=== PATIENT | female | born 1940 | race Caucasian/White ===

== ENCOUNTER 2017-06-17 16:10 | Inpatient (IN) | payer MEDICARE, OTHER ==
[2017-06-17 17:03] LABS: ADD MAN DIFF? NO
[2017-06-17 17:07] LABS: BASO # 0.1 x10^3/uL (0.0-0.2); BASO % 1 % (0-3); EOS % 0 % (0-3); HEMOGLOBIN 13.8 g/dL (12.0-15.5); LYMPH # 0.8 x10^3/uL (1.0-4.8); LYMPH % 6 % (24-48); MEAN CORPUSCULAR HEMOGLOBIN 30 pg (25-35); MEAN CORPUSCULAR HGB CONC 33 g/dL (31-37); MEAN CORPUSCULAR VOLUME 91 fL (79-100); MONO # 1.1 x10^3/uL (0.0-1.1); MONO % 9 % (0-9); NEUT # 10.7 x10^3uL (1.8-7.7); NEUT % 84 % (31-73); PLATELET COUNT 132 x10^3/uL (140-400); RED CELL DISTRIBUTION WIDTH 16.9 % (11.5-14.5); WHITE BLOOD COUNT 12.7 x10^3/uL (4.0-11.0)
[2017-06-17 17:15] LABS: ANION GAP 5 (6-14); BLOOD UREA NITROGEN 21 mg/dL (7-20); BUN/CREATININE RATIO 21 (6-20); CALCIUM 9.7 mg/dL (8.5-10.1); CARBON DIOXIDE 26 mmol/L (21-32); CHLORIDE 102 mmol/L (98-107); GFR 54.2; GLUCOSE 123 mg/dL (70-99); POTASSIUM 4.1 mmol/L (3.5-5.1); SODIUM 133 mmol/L (136-145)
[2017-06-17 17:23] LABS: LACTIC ACID 1.6 mmol/L (0.4-2.0)
[2017-06-17 17:24] LABS: TROPONINI < 0.017 ng/mL (0.000-0.055)
[2017-06-17 17:30] LABS: CKMB MASS 0.8 ng/mL (0.0-3.6); CREATINE KINASE 74 U/L (26-192)
[2017-06-17 17:32] LABS: ALBUMIN 3.8 g/dL (3.4-5.0); ALBUMIN/GLOBULIN RATIO 0.9 (1.0-1.7); ALK PHOS 180 U/L (46-116); ALT (SGPT) 40 U/L (14-59); AMYLASE 55 U/L (25-115); AST (SGOT) 56 U/L (15-37); BILIRUBIN,URINE NEGATIVE (NEG); CLARITY,URINE CLEAR; COLOR,URINE AMBER; GLUCOSE,URINE NEGATIVE (NEG); LIPASE 243 U/L (73-393); NITRITE,URINE NEGATIVE (NEG); PROTEIN,URINE 100 mg/dL (NEG-TRACE); TOTAL BILIRUBIN 1.5 mg/dL (0.2-1.0); TOTAL PROTEIN 8.2 g/dL (6.4-8.2)
[2017-06-17 17:33] LABS: INR 2.3 (0.8-1.1); PARTIAL THROMBOPLASTIN TIME 47 SEC (24-38); PROTHROMBIN TIME PATIENT 24.7 SEC (11.7-14.0)
[2017-06-17 17:38] LABS: DIG 1.6 ng/mL (0.9-2.0)
[2017-06-17 17:39] LABS: NT-PRO BNP 2233 pg/mL (0-124)
[2017-06-17 17:42] LABS: BACTERIA,URINE FEW /HPF (0-FEW); SQUAMOUS EPITHELIAL CELL,UR MANY /LPF
[2017-06-17] MEDS: ONDANSETRON PF 4 MG/2 ML VIAL. IV (17:43)
[2017-06-17] MEDS: ACETAMINOPHEN 325 MG TABLET. PO (17:43)
[2017-06-17] MEDS: IV NORMAL SALINE 1000ML BAG 1,000 ML IV ×2 (17:44→21:51)
[2017-06-17 17:47] LABS: INFLUENZA A PATIENT NEGATIVE (NEGATIVE); INFLUENZA B PATIENT NEGATIVE (NEGATIVE); OBC FLU VALID
[2017-06-17] MEDS: WARFARIN 6 MG TABLET. PO (19:57)
[2017-06-17] MEDS: SOTALOL 80 MG TABLET. PO ×2 (19:59→21:51)
[2017-06-17 20:40] LABS: LACTIC ACID 1.8 mmol/L (0.4-2.0)
[2017-06-17 21:23] LABS: FECAL OB PT POSITIVE (NEG); NEG OBC FOB NEG; POS OBC FOB POS
[2017-06-17] MEDS ORDERED: ONDANSETRON PF 4 MG/2 ML VIAL. IV (21:45)
[2017-06-17] MEDS: ZOLPIDEM 5 MG TABLET. PO (21:50)
[2017-06-18] MEDS: ACETAMINOPHEN 325 MG TABLET. PO ×2 (00:17→21:12)
[2017-06-18 09:41] LABS: ALBUMIN 2.8 g/dL (3.4-5.0); ALBUMIN/GLOBULIN RATIO 0.8 (1.0-1.7); ALK PHOS 124 U/L (46-116); ALT (SGPT) 31 U/L (14-59); ANION GAP 12 (6-14); AST (SGOT) 38 U/L (15-37); BLOOD UREA NITROGEN 25 mg/dL (7-20); BUN/CREATININE RATIO 28 (6-20); CALCIUM 7.8 mg/dL (8.5-10.1); CARBON DIOXIDE 22 mmol/L (21-32); CHLORIDE 103 mmol/L (98-107); CREATININE 0.9 mg/dL (0.6-1.0); GFR 61.2; GLUCOSE 112 mg/dL (70-99); POTASSIUM 3.5 mmol/L (3.5-5.1); SODIUM 137 mmol/L (136-145); TOTAL BILIRUBIN 1.3 mg/dL (0.2-1.0); TOTAL PROTEIN 6.5 g/dL (6.4-8.2)
[2017-06-18] MEDS: LEVOTHYROXINE 112 MCG TABLET PO (10:00)
[2017-06-18] MEDS: VANCOMYCIN 1.75 GM in IV 1/2 NORMAL SALINE 500 ML IV (10:10)
[2017-06-18] MEDS: SOTALOL 80 MG TABLET. PO ×2 (10:14→21:13)
[2017-06-18] MEDS: DIGOXIN 250 MCG TABLET. PO (10:16)
[2017-06-18] MEDS: LEVOTHYROXINE 137 MCG TABLET PO (10:41)
[2017-06-18] MEDS: VANCOMYCIN PER PHARMACY MC (12:59)
[2017-06-18] MEDS: cefTRIAXone IV Push 2 GM VIAL. IVP ×2 (13:03→21:13)
[2017-06-18] MEDS: WARFARIN 6 MG TABLET. PO (17:02)
[2017-06-18] MEDS ORDERED: cefTRIAXone IV Push 2 GM VIAL. IVP (20:00)
[2017-06-18] MEDS ORDERED: cefTRIAXone IV Push 1 GM VIAL. IVP (20:00)
[2017-06-18] MEDS: LACTOBACILLUS RHAMNOSUS GG 1 CAPSULE. PO (21:12)
[2017-06-18] MEDS: ZOLPIDEM 5 MG TABLET. PO (21:13)
[2017-06-19 03:38] LABS: ADD MAN DIFF? NO
[2017-06-19 04:32] LABS: BASO # 0.1 x10^3/uL (0.0-0.2); BASO % 1 % (0-3); EOS % 0 % (0-3); HEMATOCRIT 35.4 % (36.0-47.0); HEMOGLOBIN 11.6 g/dL (12.0-15.5); LYMPH # 1.2 x10^3/uL (1.0-4.8); LYMPH % 11 % (24-48); MEAN CORPUSCULAR HEMOGLOBIN 30 pg (25-35); MEAN CORPUSCULAR HGB CONC 33 g/dL (31-37); MEAN CORPUSCULAR VOLUME 92 fL (79-100); MONO # 1.1 x10^3/uL (0.0-1.1); MONO % 10 % (0-9); NEUT # 8.6 x10^3uL (1.8-7.7); NEUT % 78 % (31-73); PLATELET COUNT 72 x10^3/uL (140-400); RED BLOOD COUNT 3.85 x10^6/uL (3.50-5.40); RED CELL DISTRIBUTION WIDTH 16.9 % (11.5-14.5)
[2017-06-19 05:48] LABS: ALBUMIN 2.7 g/dL (3.4-5.0); ALBUMIN/GLOBULIN RATIO 0.8 (1.0-1.7); ALK PHOS 103 U/L (46-116); ALT (SGPT) 27 U/L (14-59); ANION GAP 7 (6-14); AST (SGOT) 33 U/L (15-37); BLOOD UREA NITROGEN 24 mg/dL (7-20); BUN/CREATININE RATIO 27 (6-20); CALCIUM 8.1 mg/dL (8.5-10.1); CARBON DIOXIDE 26 mmol/L (21-32); CHLORIDE 105 mmol/L (98-107); CREATININE 0.9 mg/dL (0.6-1.0); GFR 61.2; GLUCOSE 104 mg/dL (70-99); POTASSIUM 3.9 mmol/L (3.5-5.1); SODIUM 138 mmol/L (136-145); TOTAL BILIRUBIN 0.6 mg/dL (0.2-1.0); TOTAL PROTEIN 6.3 g/dL (6.4-8.2)
[2017-06-19] MEDS: LEVOTHYROXINE 137 MCG TABLET PO (07:54)
[2017-06-19] MEDS ORDERED: VANCOMYCIN 1 GM in IV 1/2 NORMAL SALINE 250 ML IV (10:00)
[2017-06-19] MEDS: cefTRIAXone IV Push 2 GM VIAL. IVP (10:02)
[2017-06-19] MEDS: LACTOBACILLUS RHAMNOSUS GG 1 CAPSULE. PO ×2 (10:05→21:35)
[2017-06-19] MEDS: SOTALOL 80 MG TABLET. PO ×2 (10:05→21:35)
[2017-06-19] MEDS: DIGOXIN 250 MCG TABLET. PO (10:06)
[2017-06-19] MEDS ORDERED: VANCOMYCIN 1 GM in IV DEXTROSE 5% 250 ML IV (10:45)
[2017-06-19] MEDS: GENTAMICIN SULFATE IV ×2 (10:57→22:57)
[2017-06-19] MEDS: NORMAL SALINE IV ×3 (10:57→22:57)
[2017-06-19 15:29] LABS: SPECIMEN SOURCE Urine (.); STREP PNEUMO ANTIGEN Negative (Negative)
[2017-06-19] MEDS: DAPTOMYCIN IV (17:12)
[2017-06-19] MEDS: WARFARIN 6 MG TABLET. PO (17:13)
[2017-06-19 20:10] LABS: C DIFF BY PCR Negative (Negative)
[2017-06-19] MEDS: ZOLPIDEM 5 MG TABLET. PO (21:34)
[2017-06-20] MEDS: ACETAMINOPHEN 500 MG TABLET PO (03:26)
[2017-06-20] MEDS: ALPRAZolam 0.25 MG TABLET PO (03:26)
[2017-06-20 04:39] LABS: ADD MAN DIFF? NO
[2017-06-20 04:44] LABS: BASO % 0 % (0-3); EOS # 0.1 x10^3/uL (0.0-0.7); EOS % 1 % (0-3); HEMATOCRIT 35.3 % (36.0-47.0); HEMOGLOBIN 11.7 g/dL (12.0-15.5); LYMPH # 1.3 x10^3/uL (1.0-4.8); LYMPH % 14 % (24-48); MEAN CORPUSCULAR HEMOGLOBIN 30 pg (25-35); MEAN CORPUSCULAR HGB CONC 33 g/dL (31-37); MEAN CORPUSCULAR VOLUME 91 fL (79-100); MONO # 1.2 x10^3/uL (0.0-1.1); MONO % 13 % (0-9); NEUT # 6.3 x10^3uL (1.8-7.7); NEUT % 71 % (31-73); PLATELET COUNT 64 x10^3/uL (140-400); RED BLOOD COUNT 3.87 x10^6/uL (3.50-5.40); RED CELL DISTRIBUTION WIDTH 16.7 % (11.5-14.5); WHITE BLOOD COUNT 8.9 x10^3/uL (4.0-11.0)
[2017-06-20 04:53] LABS: INR 2.7 (0.8-1.1); PROTHROMBIN TIME PATIENT 27.6 SEC (11.7-14.0)
[2017-06-20 04:59] LABS: ANION GAP 10 (6-14); BLOOD UREA NITROGEN 21 mg/dL (7-20); CALCIUM 8.2 mg/dL (8.5-10.1); CARBON DIOXIDE 23 mmol/L (21-32); CHLORIDE 104 mmol/L (98-107); CREATININE 0.8 mg/dL (0.6-1.0); GFR 70.1; GLUCOSE 137 mg/dL (70-99); POTASSIUM 3.9 mmol/L (3.5-5.1); SODIUM 137 mmol/L (136-145)
[2017-06-20 05:06] LABS: CREATINE KINASE 130 U/L (26-192)
[2017-06-20] MEDS: LEVOTHYROXINE 137 MCG TABLET PO (06:33)
[2017-06-20] MEDS: DIGOXIN 250 MCG TABLET. PO (08:19)
[2017-06-20] MEDS: LACTOBACILLUS RHAMNOSUS GG 1 CAPSULE. PO ×2 (08:19→20:44)
[2017-06-20] MEDS: SOTALOL 80 MG TABLET. PO ×2 (08:20→20:45)
[2017-06-20] MEDS: GENTAMICIN SULFATE IV ×2 (11:15→23:07)
[2017-06-20] MEDS: NORMAL SALINE IV ×3 (11:15→23:07)
[2017-06-20] MEDS: WARFARIN 6 MG TABLET. PO (16:35)
[2017-06-20] MEDS: DAPTOMYCIN IV (16:36)
[2017-06-20] MEDS: ACETAMINOPHEN 325 MG TABLET. PO (20:44)
[2017-06-20] MEDS: ZOLPIDEM 5 MG TABLET. PO (20:44)
[2017-06-21] MEDS: LEVOTHYROXINE 137 MCG TABLET PO (06:00)
[2017-06-21] MEDS: DIGOXIN 250 MCG TABLET. PO (08:43)
[2017-06-21] MEDS: LACTOBACILLUS RHAMNOSUS GG 1 CAPSULE. PO ×2 (08:44→20:01)
[2017-06-21] MEDS: SOTALOL 80 MG TABLET. PO ×2 (08:44→20:00)
[2017-06-21] MEDS: GENTAMICIN SULFATE IV ×2 (11:11→22:54)
[2017-06-21] MEDS: NORMAL SALINE IV ×3 (11:11→22:54)
[2017-06-21] MEDS: DAPTOMYCIN IV (16:27)
[2017-06-21] MEDS: WARFARIN 6 MG TABLET. PO (16:28)
[2017-06-21] MEDS: ZOLPIDEM 5 MG TABLET. PO (20:06)
[2017-06-21] MEDS: ALPRAZolam 0.25 MG TABLET PO (20:06)
[2017-06-21] MEDS: ACETAMINOPHEN 325 MG TABLET. PO (20:06)
[2017-06-22] MEDS: LEVOTHYROXINE 137 MCG TABLET PO (06:01)
[2017-06-22 06:04] LABS: INR 2.4 (0.8-1.1); PROTHROMBIN TIME PATIENT 25.6 SEC (11.7-14.0)
[2017-06-22] MEDS: SOTALOL 80 MG TABLET. PO ×2 (08:31→20:46)
[2017-06-22] MEDS: LACTOBACILLUS RHAMNOSUS GG 1 CAPSULE. PO ×2 (08:32→20:46)
[2017-06-22] MEDS: DIGOXIN 250 MCG TABLET. PO (08:33)
[2017-06-22] MEDS: GENTAMICIN SULFATE IV ×2 (11:17→15:43)
[2017-06-22] MEDS: NORMAL SALINE IV ×3 (11:17→16:30)
[2017-06-22] MEDS: ALPRAZolam 0.25 MG TABLET PO ×2 (13:19→20:46)
[2017-06-22] MEDS: WARFARIN 6 MG TABLET. PO (16:30)
[2017-06-22] MEDS: DAPTOMYCIN IV (16:30)
[2017-06-22] MEDS: ACETAMINOPHEN 325 MG TABLET. PO (16:38)
[2017-06-22] MEDS: ZOLPIDEM 5 MG TABLET. PO (20:46)
[2017-06-23] MEDS: GENTAMICIN SULFATE IV ×2 (02:59→17:52)
[2017-06-23] MEDS: NORMAL SALINE IV ×3 (02:59→17:53)
[2017-06-23] MEDS: LEVOTHYROXINE 137 MCG TABLET PO (05:50)
[2017-06-23] MEDS: SOTALOL 80 MG TABLET. PO ×2 (09:29→22:08)
[2017-06-23] MEDS: LACTOBACILLUS RHAMNOSUS GG 1 CAPSULE. PO ×2 (09:29→22:07)
[2017-06-23] MEDS: DIGOXIN 250 MCG TABLET. PO (09:30)
[2017-06-23 10:31] LABS: GENT TR 0.9 mcg/mL (0.0-2.0)
[2017-06-23 12:04] LABS: ANION GAP 6 (6-14); BLOOD UREA NITROGEN 12 mg/dL (7-20); CALCIUM 8.6 mg/dL (8.5-10.1); CARBON DIOXIDE 30 mmol/L (21-32); CHLORIDE 104 mmol/L (98-107); CREATININE 0.8 mg/dL (0.6-1.0); GFR 70.1; GLUCOSE 151 mg/dL (70-99); POTASSIUM 4.2 mmol/L (3.5-5.1); SODIUM 140 mmol/L (136-145)
[2017-06-23] MEDS: WARFARIN 6 MG TABLET. PO (17:51)
[2017-06-23] MEDS: DAPTOMYCIN IV (17:53)
[2017-06-23] MEDS: oxyCODONE/APAP 5/325 1 TAB TABLET PO (22:07)
[2017-06-23] MEDS: ZOLPIDEM 5 MG TABLET. PO (22:07)
[2017-06-24] MEDS: NORMAL SALINE IV ×2 (03:06→15:51)
[2017-06-24] MEDS: GENTAMICIN SULFATE IV (03:06)
[2017-06-24] MEDS: LEVOTHYROXINE 137 MCG TABLET PO ×2 (04:54→08:25)
[2017-06-24 05:28] LABS: INR 2.2 (0.8-1.1); PROTHROMBIN TIME PATIENT 23.9 SEC (11.7-14.0)
[2017-06-24] MEDS ORDERED: fentaNYL PF VIAL 100 MCG/2 ML VIAL IV ×2 (07:00)
[2017-06-24] MEDS ORDERED: PROCHLORPERAZINE 10 MG/2 ML VIAL. IV (07:00)
[2017-06-24] MEDS ORDERED: LIDOCAINE 1% PF 2 ML VIAL. ID (07:00)
[2017-06-24] MEDS ORDERED: MORPHINE SULFATE 4 MG/ML DISP.SYRIN. IV (07:00)
[2017-06-24] MEDS: SOTALOL 80 MG TABLET. PO ×2 (08:26→20:19)
[2017-06-24] MEDS: LACTOBACILLUS RHAMNOSUS GG 1 CAPSULE. PO ×2 (08:27→20:19)
[2017-06-24] MEDS: DIGOXIN 250 MCG TABLET. PO (08:28)
[2017-06-24] MEDS ORDERED: LIDOCAINE 2% TOPICAL JELLY 5GM TUBE. TP (09:48)
[2017-06-24] MEDS: IV RINGERS,LACTATED 1000ML 1,000 ML IV (10:25)
[2017-06-24] MEDS: BENZOCAINE ONE 20% MUCOSAL SPRAY. MM (10:36)
[2017-06-24] MEDS: LIDOCAINE 2% TOPICAL JELLY 5GM TUBE. TP (10:39)
[2017-06-24] MEDS: LIDOCAINE 2% VISCOUS 15 ML SOLUTION. MM (10:39)
[2017-06-24] MEDS ORDERED: cefTRIAXone SODIUM 2 GM in IV DEXTROSE 5% 100 ML IV (10:45)
[2017-06-24] MEDS ORDERED: LIDOCAINE 2% PF Vial for OR 5 ML VIAL. (11:02)
[2017-06-24] MEDS ORDERED: PROPOFOL 20 ML IV (11:02)
[2017-06-24] MEDS: cefTRIAXone IV Push 2 GM VIAL. IVP ×2 (13:09→20:18)
[2017-06-24] MEDS: DAPTOMYCIN IV (15:51)
[2017-06-24] MEDS: WARFARIN 6 MG TABLET. PO (15:52)
[2017-06-24] MEDS: ZOLPIDEM 5 MG TABLET. PO (20:18)
[2017-06-24] MEDS: oxyCODONE/APAP 5/325 1 TAB TABLET PO (20:19)
[2017-06-25] MEDS: LEVOTHYROXINE 137 MCG TABLET PO (04:40)
[2017-06-25] MEDS: LACTOBACILLUS RHAMNOSUS GG 1 CAPSULE. PO (09:21)
[2017-06-25] MEDS: SOTALOL 80 MG TABLET. PO (09:22)
[2017-06-25] MEDS: DIGOXIN 250 MCG TABLET. PO (09:23)
[2017-06-25] MEDS: cefTRIAXone IV Push 2 GM VIAL. IVP (09:23)
[2017-06-25] MEDS ORDERED: ACETAMINOPHEN 500 MG TABLET PO (13:45)
== END 2017-06-25 13:00 | disposition home or self-care (01) | DRG 871 ==
LOC: ER 16:10 → 5 NORTH 18:45
PROC: 02HV33Z Insertion of Infusion Device into Superior Vena Cava, Percutaneous Approach (ICD-10-PCS; principal; 2017-06-17)
DX: A41.81 Sepsis due to Enterococcus (principal); I33.0 Acute and subacute infective endocarditis; D68.62 Lupus anticoagulant syndrome; D69.6 Thrombocytopenia, unspecified; E89.0 Postprocedural hypothyroidism; Z88.0 Allergy status to penicillin; Z88.2 Allergy status to sulfonamides; I10 Essential (primary) hypertension; I25.10 Atherosclerotic heart disease of native coronary artery without angina pectoris; I48.91 Unspecified atrial fibrillation; M19.90 Unspecified osteoarthritis, unspecified site; N39.41 Urge incontinence; Z79.01 Long term (current) use of anticoagulants; Z87.891 Personal history of nicotine dependence; Z95.0 Presence of cardiac pacemaker; Z95.2 Presence of prosthetic heart valve
CPT/HCPCS: 36415; 36569; 70450; 71045; 74176; 80048; 80053; 80162; 80170; 81001; 82150; 82274; 82550; 82553; 83605; 83690; 83880; 84145; 84484; 85025; 85610; 85730; 87040; 87045; 87205; 87324; 87449; 87804; 87804-59; 93005; 93306; 93312; 93320; 93325; 96374; 99285; 99285-25; J0690; J0696; J0878; J1580; J2405; J2704; J3370; J7030; J7120; P9612

== ENCOUNTER → 2017-09-17 | Outpatient (CLI) | payer MEDICARE, OTHER ==
[2017-09-17 09:50] LABS: ADD MAN DIFF? NO
[2017-09-17 10:02] LABS: BASO % 1 % (0-3); EOS # 0.2 x10^3/uL (0.0-0.7); EOS % 6 % (0-3); HEMATOCRIT 36.4 % (36.0-47.0); HEMOGLOBIN 11.8 g/dL (12.0-15.5); LYMPH % 25 % (24-48); MEAN CORPUSCULAR HEMOGLOBIN 29 pg (25-35); MEAN CORPUSCULAR HGB CONC 33 g/dL (31-37); MEAN CORPUSCULAR VOLUME 89 fL (79-100); MONO # 0.7 x10^3/uL (0.0-1.1); MONO % 17 % (0-9); NEUT % 52 % (31-73); PLATELET COUNT 107 x10^3/uL (140-400); RED BLOOD COUNT 4.11 x10^6/uL (3.50-5.40); RED CELL DISTRIBUTION WIDTH 18.5 % (11.5-14.5)
[2017-09-17 10:48] LABS: ALBUMIN 3.5 g/dL (3.4-5.0); ALBUMIN/GLOBULIN RATIO 0.9 (1.0-1.7); ALK PHOS 144 U/L (46-116); ALT (SGPT) 27 U/L (14-59); ANION GAP 7 (6-14); AST (SGOT) 39 U/L (15-37); BLOOD UREA NITROGEN 24 mg/dL (7-20); BUN/CREATININE RATIO 30 (6-20); CALCIUM 9.2 mg/dL (8.5-10.1); CARBON DIOXIDE 26 mmol/L (21-32); CHLORIDE 106 mmol/L (98-107); CREATININE 0.8 mg/dL (0.6-1.0); GFR 69.9; GLUCOSE 142 mg/dL (70-99); POTASSIUM 4.1 mmol/L (3.5-5.1); SODIUM 139 mmol/L (136-145); TOTAL BILIRUBIN 0.7 mg/dL (0.2-1.0); TOTAL PROTEIN 7.4 g/dL (6.4-8.2)
== END | disposition home or self-care (01) ==
LOC: LAB 09:35
DX: R78.81 Bacteremia (principal); I10 Essential (primary) hypertension; F41.9 Anxiety disorder, unspecified; Z87.891 Personal history of nicotine dependence
CPT/HCPCS: 36415; 80053; 85025

== ENCOUNTER → 2017-09-25 | Outpatient (CLI) | payer MEDICARE, OTHER | END | disposition home or self-care (01) | LOC: ECHO 07:52 | DX: I08.3 Combined rheumatic disorders of mitral, aortic and tricuspid valves (principal); I27.20 Pulmonary hypertension, unspecified; I10 Essential (primary) hypertension; E89.0 Postprocedural hypothyroidism; Z95.0 Presence of cardiac pacemaker; Z87.891 Personal history of nicotine dependence; Z95.2 Presence of prosthetic heart valve | CPT/HCPCS: 93306 ==

== ENCOUNTER → 2018-07-09 | Outpatient (CLI) | payer MEDICARE, OTHER ==
[2017-07-29 07:04] VITALS: BP 162/80
[~2018-07-09] MED LIST: ACET500T68 PO; ALPR0.257 PO; BUTA1CAP61 PO; DIGO250T PO; DILT240C32 PO; DRON400T PO; HYDR-3165 PO; HYDR12.575 PO; HYDR12.58 PO; LEVO112T4 PO; LEVO137T3 PO; OXYC1TAB15 PO; SOTA150V IV; SOTA160T PO; TIZA4CAP PO; WARF-31 PO; WARF1POW MC; ZOLP10TA4 PO
--- NOTE | 2018-07-13 10:56 | RAD ---
MR#: [id number] Date of Study: 07/09/2018 Ordering Physician: LASHON SILVERIO, Referring Physician: LASHON SILVERIO, Tech: Gregorio Negro MBA, RDMS, RVT, RDCS, RTR APPROVED REPORT Patient Location: OUT-PATIENT Indications Rest Pain: VELOCITY AND DOPPLER WAVEFORM ANALYSIS RIGHT cm/secWaveformSeverity LEFT cm/secWaveform Severity dCFA 138.0BiphasicdCFA 97.0Biphasic Prof Fem Art. 68.0BiphasicProf Fem Art. 92.0Biphasic Fem Art Prox. 126.0BiphasicFem Art Prox. 124.0Biphasic Fem Art Mid. 124.0BiphasicFem Art Mid. 122.0Biphasic Fem Art Dist. 112.0BiphasicFem Art Dist. 129.0Biphasic Pop Art(Fossa) 98.0BiphasicPop Art(AK) 91.0Biphasic MACHINE OR MACHINERY MECHANIC Prox. 89.0BiphasicPTA Prox. 63.0Biphasic MACHINE OR MACHINERY MECHANIC Dist. 116.0TriphasicPTA Dist. 104.0Biphasic Per Art Mid. 42.0BiphasicPer Art Mid. 107.0Biphasic DIDIER Prox. 102.0BiphasicATA Prox. 81.0Biphasic DPA 114BiphasicDPA 115Triphasic Findings Grayscale images of the bilateral lower extremity arterial vessels reveals no significant atheroscler otic plaque. Spectral waveforms and color Doppler throughout the bilateral lower 70s are within bridgett l limits with mostly biphasic and triphasic waveforms throughout the course. No focal obstruction is identified and there is three-vessel runoff below the knees. Critical Notification Critical Value: No <Conclusion> No significant obstructive lower extremity arterial disease. Signed by : Winston Mane, Electronically Approved : 07/09/2018 12:37:15
--- NOTE | 2018-07-13 10:56 | RAD ---
MR#: [id number] Date of Study: 07/09/2018 Ordering Physician: LASHON SILVERIO, Referring Physician: LASHON SILVERIO, Tech: Gregorio Negro MBA, RDMS, RVT, RDCS, RTR APPROVED REPORT Patient Location : OUT-PATIENT Indications Lower Extremity Pain : Greater Saphenous Veins (GSV) Significant venous relux noted in the LEFT GSV at the following levels : Superficial Femoral Junction , Proximal Thigh, Mid Thigh, Distal Thigh, Proximal Calf, Mid Calf, Distal Calf Lesser Saphenous Veins (LSV) Significant venous reflux is noted in the Left LSV. Perforators Thigh Perforators Calf Perforators Left: cm up from medial heel 15cm back from the anterior border of tibia 3 diameter 1.5mm. Findings Grayscale images of the bilateral saphenofemoral junctions do not show any obvious evidence of thromb us. On the right side the great saphenous vein measures 4.4 mm and does not show any evidence of refl ux. There are multiple venous varicosities noted in the right thigh. On the left side the great saphe nous vein measures 4.3 mm and has moderate reflux at approximately 2.7 seconds throughout the venous course. The left lesser saphenous vein also demonstrates a reflux at 1.5 seconds. There are calf perf orators noted at about 15 cm up and 3 cm back measuring approximately 1.5 mm noted on the left side. Critical Notification Critical Value: No <Conclusion> 1. Positive for reflux in the left greater and lesser saphenous veins. Signed by : Winston Mane, Electronically Approved : 07/09/2018 12:43:02
--- NOTE | 2018-07-13 10:56 | CARD ---
MR#: [id number] Date of Study: 07/09/2018 Ordering Physician: LASHON SILVERIO, Referring Physician: LASHON SILVERIO, Tech: Stephanie Shelton HARRIET APPROVED REPORT EXAM: Two-dimensional echocardiogram with Doppler and color Doppler. Other Information Quality : Good INDICATION Surgery/Intervention Status/Post Aortic Valve Replacement: Mechanical Type: [employer]. Nabeel Date: 1995 Status/Post Mitral Valve Replacement: Mechanical Type: [employer] Nabeel Date: 1995 Pacemaker: Date: 1999 2D DIMENSIONS RVDd2.6 (2.9-3.5cm)Left Atrium(2D)5.4 (1.6-4.0cm) IVSd1.3 (0.7-1.1cm)Aortic Root(2D)2.2 (2.0-3.7cm) LVDd5.0 (3.9-5.9cm)LVOT Diameter2.2 (1.8-2.4cm) PWd0.9 (0.7-1.1cm)LVDs4.0 (2.5-4.0cm) FS (%) 19.8 %SV48.1 ml LVEF(%)40.5 (>50%) Aortic Valve AoV Peak Vito.279.9cm/sAoV VTI46.5cm AO Peak GR.31.3mmHgLVOT Peak Vito.167.2cm/s AO Mean GR.17mmHgAVA (VMAX)2.27cm2 LAURA (VTI)2.46go9HU P 1/2 Hsdp885wv Mitral Valve MV E Peak Gr.15mmHgMV E Mean Gr.6mmHg Tricuspid Valve TR P. Vvienfsx613qs/sRAP [id number] TR Peak Gr.64elYtHQHI12pcHy LEFT VENTRICLE The left ventricle is normal size. There is normal left ventricular wall thickness. Left ventricle sy stolic function is moderately impaired. The Ejection Fraction is 40-45%. There is global hypokinesis of the left ventricle. Tissue Doppler imaging reveals moderate left ventricular diastolic dysfunction . RIGHT VENTRICLE The right ventricle is normal size. The right ventricular systolic function is normal. There is a pac emaker lead in the right ventricle. ATRIA The left atrium is severely dilated. The right atrium size is normal. A pacemaker is seen in the righ t atrium consistent with history. The interatrial septum is intact with no evidence for an atrial sep bassam defect or patent foramen ovale as noted on 2-D or Doppler imaging. AORTIC VALVE Doppler and Color Flow revealed mild aortic regurgitation. Calculated aortic valve area is 2.4 cm2 wi th maximum pressure gradient of 31 mmHg and mean pressure gradient of 17 mmHg. There is a bi-leaflet (St[employer] Nabeel) mechanical aortic valve prosthesis. The prosthetic aortic valve appears well seated. MITRAL VALVE Calculated mitral valve area is 2.6 cm2 with maximum pressure gradient of 15 mmHg and mean pressure g radient of 6 mmHg. Doppler and Color-flow revealed mild jamee-valvular mitral regurgitation. There is a bi-leaflet ([employer] Nabeel) mechanical prosthesis of the mitral valve. Prosthetic mitral valve appears we ll seated. TRICUSPID VALVE The tricuspid valve is normal in structure and function. Doppler and Color Flow revealed mild to mode rate tricuspid regurgitation. There is moderate pulmonary hypertension. The PA pressure was estimated at 45 mmHg. There is no tricuspid valve stenosis. PULMONIC VALVE The pulmonic valve is not well visualized. Doppler and Color Flow revealed no pulmonic valvular regur gitation. There is no pulmonic valvular stenosis. GREAT VESSELS The aortic root is normal in size. The ascending aorta is moderately dilated at 3.7 cm. The IVC is di lated and collapses >50% with inspiration. PERICARDIAL EFFUSION There is no evidence of significant pericardial effusion. Critical Notification Critical Value: No <Conclusion> Left ventricle systolic function is moderately impaired. The Ejection Fraction is 40-45%. There is global hypokinesis of the left ventricle. There is a pacemaker lead in the right ventricle. There is a bi-leaflet (St[employer] Nabeel) mechanical aortic valve prosthesis. The prosthetic aortic valve appe ars well seated. Calculated aortic valve area is 2.4 cm2 with maximum pressure gradient of 31 mmHg and mean pressure g radient of 17 mmHg. There is a bi-leaflet ([employer] Nabeel) mechanical prosthesis of the mitral valve. Prosthetic mitral valve a ppears well seated. Calculated mitral valve area is 2.6 cm2 with maximum pressure gradient of 15 mmHg and mean pressure g radient of 6 mmHg. Doppler and Color-flow revealed mild jamee-valvular mitral regurgitation. Doppler and Color Flow revealed mild to moderate tricuspid regurgitation. There is moderate pulmonary hypertension. The PA pressure was estimated at 45 mmHg. Signed by : Winston Mane, Electronically Approved : 07/09/2018 12:19:28
== END | disposition home or self-care (01) ==
LOC: US 07:51
PROVIDERS: ATTEND Internal Medicine Cardiovascular Disease
DX: I08.3 Combined rheumatic disorders of mitral, aortic and tricuspid valves (principal); I27.20 Pulmonary hypertension, unspecified; I87.2 Venous insufficiency (chronic) (peripheral); Z95.2 Presence of prosthetic heart valve
CPT/HCPCS: 93306; 93925; 93970

== ENCOUNTER → 2018-09-06 | Outpatient (CLI) | payer MEDICARE, OTHER ==
[2017-07-29 07:04] VITALS: BP 162/80
[~2018-09-06] MED LIST changes: +IOHEXOL 300 MG/ML 100ML VIAL. IV ONE
--- NOTE | 2018-09-06 16:39 | RAD ---
CT HEAD WO/W CONTRAST, CT ORBITS WO/W CONTRAST Date: 09/06/2018 9:30 AM Clinical Indication: Visual disturbance Comparison: CT head 06/17/2017. Technique: Axial tomographic images were obtained of the head and orbits with and without contrast. 70 cc Omnipaque 300 contrast was administered intravenously during the exam. These were viewed on brain and bone windows. Coronal and sagittal multiplanar reconstructions were also obtained. One Or more of the following dose reduction techniques were utilized: Automated exposure control (AEC), Adjustment of mA and/or kV according to patient size, Use of iterative reconstruction technique such as ASiR, CT scan done according to ALARA and image gently/image wisely Findings: The brain parenchyma is normal in attenuation. No intra- or extra-axial mass or fluid collection. No acute hemorrhage. The ventricles are normal in size, shape, and morphology. The braun-white matter junction is normal. The subarachnoid cisterns are patent. The orbits and globes are normal. No orbital mass. No abnormal enhancement. The visualized paranasal sinuses are normal. The mastoid air cells are clear. The gardening manager topogram shows no lytic lesion or fracture. Impression: No acute intracranial process. Normal orbits. Electronically signed by: John Rose MD (09/06/2018 4:36 PM) [id number]
--- NOTE | 2018-09-06 16:39 | RAD ---
CT HEAD WO/W CONTRAST, CT ORBITS WO/W CONTRAST Date: 09/06/2018 9:30 AM Clinical Indication: Visual disturbance Comparison: CT head 06/17/2017. Technique: Axial tomographic images were obtained of the head and orbits with and without contrast. 70 cc Omnipaque 300 contrast was administered intravenously during the exam. These were viewed on brain and bone windows. Coronal and sagittal multiplanar reconstructions were also obtained. One Or more of the following dose reduction techniques were utilized: Automated exposure control (AEC), Adjustment of mA and/or kV according to patient size, Use of iterative reconstruction technique such as ASiR, CT scan done according to ALARA and image gently/image wisely Findings: The brain parenchyma is normal in attenuation. No intra- or extra-axial mass or fluid collection. No acute hemorrhage. The ventricles are normal in size, shape, and morphology. The braun-white matter junction is normal. The subarachnoid cisterns are patent. The orbits and globes are normal. No orbital mass. No abnormal enhancement. The visualized paranasal sinuses are normal. The mastoid air cells are clear. The lottery manager topogram shows no lytic lesion or fracture. Impression: No acute intracranial process. Normal orbits. Electronically signed by: John Rose MD (09/06/2018 4:36 PM) [id number]
== END | disposition home or self-care (01) ==
LOC: CT 09:00
PROVIDERS: ATTEND Ophthalmology
DX: H53.19 Other subjective visual disturbances (principal); Z95.0 Presence of cardiac pacemaker
CPT/HCPCS: 70470; 70482; Q9967

== ENCOUNTER → 2018-11-24 | Outpatient (CLI) | payer MEDICARE, OTHER ==
[2017-07-29 07:04] VITALS: BP 162/80
[~2018-11-24] MED LIST changes: -IOHEXOL 300 MG/ML 100ML VIAL. IV ONE
--- NOTE | 2018-11-24 08:05 | RAD ---
ABDOMEN COMPLETE: 11/24/2018 7:30 AM Indication: 78 years old Female. Splenomegaly. Comparison: None. TECHNIQUE: Sonographic evaluation of the abdomen is performed utilizing grayscale and color Doppler. FINDINGS: Liver: Homogenous normal echotexture.. There is hepatopedal flow within the portal venous system. Right hepatic lobe measures 15.8 cm. Left hepatic cyst measures 1.4 x 1.1 cm. Biliary system: CBD measures 7 mm. There is no intrahepatic or extrahepatic biliary dilatation. Gallbladder: Surgically absent. Sonographic Dias sign: Negative Pancreas: Visualized head and uncinate process are unremarkable. Body and tail are not visualized. Spleen: 11.7 cm. Right kidney: 10.4 x 4.0 x 5.3 cm. No hydronephrosis. Normal echotexture without focal mass or renal calculus. Left kidney: 11.3 x 4.3 x 5.6 cm. No hydronephrosis. Normal echotexture without focal mass or renal calculus. Abdominal aorta and IVC: Visualized portions unremarkable. Free fluid:None. IMPRESSION: Status post cholecystectomy without intrahepatic or extrahepatic periductal dilatation. Spleen is nonenlarged measuring 11.7 cm in craniocaudal dimension. Electronically signed by: Nanci Olson MD (11/24/2018 8:02 AM) [facility]
== END | disposition home or self-care (01) ==
LOC: US 07:14
PROVIDERS: ATTEND Internal Medicine Hematology & Oncology
DX: K76.89 Other specified diseases of liver (principal); D50.9 Iron deficiency anemia, unspecified; D64.9 Anemia, unspecified; Z90.49 Acquired absence of other specified parts of digestive tract
CPT/HCPCS: 76700

== ENCOUNTER 2018-12-02 09:52 | Outpatient (CLI) | payer MEDICARE, OTHER ==
[~2018-12-02] VITALS: Ht 165.1 cm; Wt 66.2 kg
[2018-12-02 10:30] VITALS: BP 171/86
[2018-12-02] MEDS ORDERED: MIRA50TA PO (10:45)
[2018-12-02] MEDS ORDERED: LOSA-73 PO (10:45)
[2018-12-02] MEDS ORDERED: WARF-78 PO (10:45)
[2018-12-02] MEDS ORDERED: WARF7.5T48 PO (10:45)
[2018-12-02 11:05] LABS: BASO % 0 % (0-3); EOS % 0 % (0-3); HEMATOCRIT 34.2 % (36.0-47.0); HEMOGLOBIN 11.2 g/dL (12.0-15.5); LYMPH # 0.5 x10^3/uL (1.0-4.8); LYMPH % 5 % (24-48); MEAN CORPUSCULAR HEMOGLOBIN 29 pg (25-35); MEAN CORPUSCULAR HGB CONC 33 g/dL (31-37); MEAN CORPUSCULAR VOLUME 88 fL (79-100); MONO # 0.3 x10^3/uL (0.0-1.1); MONO % 4 % (0-9); NEUT # 8.7 x10^3/uL (1.8-7.7); NEUT % 91 % (31-73); PLATELET COUNT 72 x10^3/uL (140-400); RED BLOOD COUNT 3.87 x10^6/uL (3.50-5.40); RED CELL DISTRIBUTION WIDTH 25.2 % (11.5-14.5); WHITE BLOOD COUNT 9.5 x10^3/uL (4.0-11.0)
[2018-12-02 11:25] LABS: PROTHROMBIN TIME PATIENT 52.2 SEC (11.7-14.0)
[2018-12-02 14:37] LABS: % LYMPHS 2 % (24-48); % MONOS 2 % (0-10); % SEGS 96 % (35-66)
[2018-12-02 14:40] LABS: PLT ESTIMATE DECREASED (ADEQUATE)
[2018-12-02 16:23] LABS: ANISOCYTOSIS MOD
== END 2018-12-02 12:04 | disposition home or self-care (01) ==
LOC: INTRAD 09:52
PROVIDERS: ATTEND Internal Medicine Hematology & Oncology
DX: D69.6 Thrombocytopenia, unspecified (principal); R79.1 Abnormal coagulation profile; D64.9 Anemia, unspecified; Z53.09 Procedure and treatment not carried out because of other contraindication
CPT/HCPCS: 36415; 85007; 85025; 85610

== ENCOUNTER 2019-01-06 08:23 | Outpatient (CLI) | payer MEDICARE, OTHER ==
[2019-01-06] VITALS (8 sets, daily range): BP systolic 138–170; BP diastolic 70–90
[~2019-01-06] VITALS: Ht 160 cm; Wt 65.3 kg
[~2019-01-06 08:23] MED LIST changes: +LOSA-73 PO; +MIRA50TA PO; +WARF-78 PO; +WARF7.5T48 PO
[2019-01-06] MEDS ORDERED: PRED20TA PO (08:40)
[2019-01-06 08:55] LABS: BASO # 0.1 x10^3/uL (0.0-0.2); BASO % 1 % (0-3); EOS # 0.1 x10^3/uL (0.0-0.7); EOS % 2 % (0-3); HEMATOCRIT 44.6 % (36.0-47.0); HEMOGLOBIN 14.3 g/dL (12.0-15.5); LYMPH # 1.2 x10^3/uL (1.0-4.8); LYMPH % 12 % (24-48); MEAN CORPUSCULAR HEMOGLOBIN 30 pg (25-35); MEAN CORPUSCULAR HGB CONC 32 g/dL (31-37); MEAN CORPUSCULAR VOLUME 95 fL (79-100); MONO # 0.8 x10^3/uL (0.0-1.1); MONO % 9 % (0-9); NEUT # 7.4 x10^3/uL (1.8-7.7); NEUT % 77 % (31-73); PLATELET COUNT 57 x10^3/uL (140-400); RED CELL DISTRIBUTION WIDTH 23.3 % (11.5-14.5); WHITE BLOOD COUNT 9.6 x10^3/uL (4.0-11.0)
[2019-01-06 09:00] LABS: CALCIUM 8.4 mg/dL (8.5-10.1); CREATININE 0.7 mg/dL (0.6-1.0); GFR 81.4; POTASSIUM 3.9 mmol/L (3.5-5.1)
[2019-01-06 09:03] LABS: PROTHROMBIN TIME PATIENT 16.9 SEC (11.7-14.0)
[2019-01-06] MEDS ORDERED: MIDAZOLAM HCL/PF 2 MG/2 ML VIAL. ONE (09:04)
[2019-01-06 09:05] LABS: ALBUMIN 3.4 g/dL (3.4-5.0); ALBUMIN/GLOBULIN RATIO 1.2 (1.0-1.7); TOTAL BILIRUBIN 1.9 mg/dL (0.2-1.0); TOTAL PROTEIN 6.3 g/dL (6.4-8.2)
[2019-01-06] MEDS ORDERED: fentaNYL PF VIAL 100 MCG/2 ML VIAL ONE (09:05)
[2019-01-06] MEDS ORDERED: LIDOCAINE WITH 8.4% SOD BICARB 3 ML DISP.SYRIN. ONE (09:09)
[2019-01-06] MEDS ORDERED: MIDAZOLAM HCL/PF 2 MG/2 ML VIAL. IV ONE (09:15)
[2019-01-06] MEDS ORDERED: fentaNYL PF VIAL 100 MCG/2 ML VIAL IV ONE (09:15)
[2019-01-06] MEDS ORDERED: LIDOCAINE WITH 8.4% SOD BICARB 3 ML DISP.SYRIN. IJ ONE (09:15)
--- NOTE | 2019-01-06 11:11 | NUR ---
pt discharged to home with family. Discharge instructions reviewed. Lovenox prescription called in by RN for pt to take until INR is 2.5. Pt tolerate PO. PIV dcd
[2019-01-06 12:05] LABS: ANISOCYTOSIS SLIGHT; PLT ESTIMATE DECREASED (ADEQUATE)
--- NOTE | 2019-01-07 11:18 | RAD ---
CT-guided bone marrow biopsy. 01/07/2019 9:15 AM Indication: THROMBOCYTOPENIA Discussion: The risks and benefits of the procedure, including but not limited to, bleeding and infection were discussed patient. Informed consent was obtained. The patient was brought to the CT scanner and placed in the prone position. A timeout procedure was performed. Mason Tender CT imaging of the pelvis demonstrated left ilium amenable to bone marrow biopsy. The overlying soft tissues were prepped and draped using maximum sterile barrier technique. 1% lidocaine without epinephrine was administered for local anesthesia. Under intermittent CT guidance, an OncControl needle was advanced into the bone marrow of the left iliac crest. 2 Aspirates and 1 core biopsy samples were obtained. Samples were delivered to pathology was present at the time of procedure. The needle was removed and manual pressure held to achieve hemostasis. No immediate complications were identified. The procedure was performed under conscious sedation including continuous cardiopulmonary monitoring via dedicated sedation nurse. Sedation time: 20 minutes Impression: Successful CT-guided bone marrow biopsy of the left iliac crest . PQRS Compliance Statement: One or more of the following individualized dose reduction techniques were utilized for this examination: 1. Automated exposure control 2. Adjustment of the mA and/or kV according to patient size 3. Use of iterative reconstruction technique
== END 2019-01-06 11:15 | disposition home or self-care (01) ==
LOC: INTRAD 08:23
PROVIDERS: ATTEND Internal Medicine Hematology & Oncology
DX: D69.6 Thrombocytopenia, unspecified (principal)
CPT/HCPCS: 36415; 38222; 77012; 80053; 85025; 85610; 99152; J2250; J3010; 88184; 88185; 88237

== ENCOUNTER 2019-04-18 11:52 | Emergency (ER) | payer MEDICARE, OTHER ==
[~2019-04-18] VITALS: Ht 165.1 cm; Wt 68.0 kg
[~2019-04-18 11:52] MED LIST changes: -DIGO250T PO; +DIGO250T3 PO; +PRED20TA PO
--- NOTE | 2019-04-18 12:58 | PHYS DOC ---
Past Medical History Past Medical History: A-Fib, CAD, Other Additional Past Medical Histor: LUPUS ANTICOAGULANT Past Surgical History: Cholecystectomy, Pacemaker, Other Additional Past Surgical Histo: ARTIFICIAL VALVE X2, THYROID Smoking Status: Never Smoker Alcohol Use: None Drug Use: None Adult General Chief Complaint Chief Complaint: MECHANICAL FALL HPI HPI Patient is a 78-year-old female, who takes warfarin, due to previous aortic and mitral valve replacements, who presents to the emergency department for evaluat ion. The patient states she was walking in her garage this morning, when she tripped and fell, striking her face on the floor. She sustained a small laceration overlying her right eyebrow. She denies any loss of consciousness, she admits to a very mild headache. She also complains of pain in her left knee anteriorly, as well as on her left wrist. She has not had any nausea, or vomi ting. She states she checks her INR every Thursday, her INR was 1.4 today, and her doctor will be given her instructions about how to adjust her warfarin level. She denies any numbness, or other weakness. There are no alleviating, or exacerbating factors to her symptoms otherwise. The patient denies that she felt dizzy or lightheaded. She states that she tripped which is what caused her fall. Review of Systems Review of Systems Constitutional: Denies fever or chills [] Eyes: Denies change in visual acuity, redness, or eye pain [] HENT: Denies nasal congestion or sore throat [] Respiratory: Denies cough or shortness of breath [] Cardiovascular: The patient denies any shortness of breath, chest pain, palpitations, or orthopnea [] GI: Denies abdominal pain, nausea, vomiting, bloody stools or diarrhea [] : Denies dysuria or hematuria [] Musculoskeletal: Denies back pain or joint pain, other than as mentioned in the history of present illness. [] Integument: Denies rash or skin lesions [] Neurologic: Denies focal weakness or sensory changes [] Endocrine: Denies polyuria or polydipsia [] All other systems were reviewed and found to be within normal limits, except as documented in this note. Allergies Allergies Allergies Coded Allergies Type Severity Reaction Last Updated Verified Penicillins Allergy Intermediate 12/14/18 Yes Sulfa (Sulfonamide Antibiotics) Allergy Intermediate 10/29/19 Yes Physical Exam Physical Exam PHYSICAL EXAM: CONSTITUTIONAL: Well developed, well nourished HEAD: normocephalic, atraumatic EENT: PERRL, EOMI. Conjunctivae normal color, sclerae non-icteric; moist mucous membranes. There is a laceration overlying the right eyebrow, without any definite bony tenderness to palpation. The remainder of the facial bones are atraumatic. NECK: Supple, non-tender; no meningismus.There is full, painless range of motion of the cervical spine, without any focal bony midline tenderness to palpation. LUNGS: Lungs CTA, breathing even and unlabored. Normal air movement. HEART: Regular rate and rhythm, Metallic heart valves are present. CHEST: No deformity; non-tender ABDOMEN: The abdomen is soft, and non-tender, no masses or bruits. EXTREM: Normal ROM; no deformity, no calf tenderness. Normal pulses palpable in all extremities. There is no pedal edema. There is bruising and tenderness to palpation noted on the anterior aspect of the left knee, without any crepitus or deformity, there is tenderness to palpation and bruising noted on the volar surface of the left wrist, just proximal to the thenar eminence, without any definite bony tenderness to palpation. Remainder the extremities are atraumatic. SKIN: No rash; no diaphoresis NEURO: Alert; normal speech and cognition; CN's grossly intact; strength grossly intact without focal deficit. BACK: No CVA TTP.There is no bony tenderness to palpation of the thoracic or lumbar spine. Current Patient Data Vital Signs Vital Signs Date Time Temp Pulse Resp B/P (MAP) Pulse Ox O2 Delivery O2 Flow Rate FiO2 04/18/19 12:02 98.2 80 18 160/83 (108) 98 Room Air 98.2 EKG EKG Normal sinus rhythm with first-degree AV block, ventricular paced rhythm with QRS widening without acute ischemic changes. Radiology/Procedures Radiology/Procedures PROCEDURE: CT HEAD WO CONTRAST CT HEAD WO CONTRAST Indication: Injury after a fall. Exposure: One or more of the following individualized dose reduction techniques were utilized for this examination: 1. Automated exposure control 2. Adjustment of the mA and/or kV according to patient size 3. Use of iterative reconstruction technique. Technique: Standard imaging without intravenous contrast. Comparison: 02/16/2019. FINDINGS: Intracranial arterial calcifications. No evidence of acute intracranial hemorrhage, mass effect, midline shift or abnormal extra-axial fluid collection. Cardenas-white matter distinction is maintained. Ventricles and sulci are symmetric. The visualized orbits are unremarkable. No significant scalp swelling. The visualized paranasal sinuses are clear. Mastoids and auditory canals appear grossly clear. No evidence of depressed skull fracture. IMPRESSION: No evidence of acute intracranial hemorrhage. No significant interval change since prior exam.[] PROCEDURE: KNEE LEFT 4V KNEE LEFT 4V, WRIST 3V LEFT History: Pain after a fall. 3 view portable left wrist: No evidence of acute fracture. No aggressive bone destruction. Widening of the scapholunate distance. No evidence of dislocation. No significant soft tissue abnormality. IMPRESSION: 1. No evidence of an acute fracture. 2. Mild widening of the scapholunate space, raising the question of ligament tear and scapholunate dissociation. 4 view portable left knee No evidence of acute fracture. No aggressive bone destruction. Joint spaces appear intact. Alignment is intact. No significant soft tissue abnormality. IMPRESSION: No evidence of acute fracture or dislocation. Course & Med Decision Making Course & Med Decision Making Pertinent Imaging studies reviewed. (See chart for details) []Patient remains stable. I discussed test results, the need for close follow- up, and return precautions. I discussed the need for close orthopedic follow-up. LACERATION REPAIR NOTE: The 3 cm right facial laceration, in the area of the right eyebrow, was irrigated with normal saline and closed with Dermabond. SPLINT APPLICATION NOTE: A Velcro splint was placed on the left wrist. Dragon Disclaimer Dragon Disclaimer This electronic medical record was generated, in whole or in part, using a voice recognition dictation system. Departure Departure Impression: Primary Impression: Left wrist injury Additional Impressions: Facial laceration Closed head injury Anticoagulated on warfarin Knee contusion Disposition: HOME, SELF-CARE Condition: STABLE Referrals: GLEN COOL MD (PCP) WILIAN AVILA II, MD Patient Instructions: Contusion, Head Injury, Adult, Tissue Adhesive Wound Care, Wrist Splint Additional Instructions: Follow-up with orthopedics for further evaluation of your wrist injury. Please keep the splint in place, except when bathing, until instructed by physician to remove the splint. Tylenol as needed for pain Problem Qualifiers GLEN HATCH MD Apr 18, 2019 12:58
--- NOTE | 2019-04-18 13:31 | RAD ---
CT HEAD WO CONTRAST Indication: Injury after a fall. Exposure: One or more of the following individualized dose reduction techniques were utilized for this examination: 1. Automated exposure control 2. Adjustment of the mA and/or kV according to patient size 3. Use of iterative reconstruction technique. Technique: Standard imaging without intravenous contrast. Comparison: 02/16/2019. FINDINGS: Intracranial arterial calcifications. No evidence of acute intracranial hemorrhage, mass effect, midline shift or abnormal extra-axial fluid collection. Cardenas-white matter distinction is maintained. Ventricles and sulci are symmetric. The visualized orbits are unremarkable. No significant scalp swelling. The visualized paranasal sinuses are clear. Mastoids and auditory canals appear grossly clear. No evidence of depressed skull fracture. IMPRESSION: No evidence of acute intracranial hemorrhage. No significant interval change since prior exam. Electronically signed by: Serafin Zamarripa MD (04/18/2019 1:29 PM) [id number]
--- NOTE | 2019-04-18 13:47 | RAD ---
KNEE LEFT 4V, WRIST 3V LEFT History: Pain after a fall. 3 view portable left wrist: No evidence of acute fracture. No aggressive bone destruction. Widening of the scapholunate distance. No evidence of dislocation. No significant soft tissue abnormality. IMPRESSION: 1. No evidence of an acute fracture. 2. Mild widening of the scapholunate space, raising the question of ligament tear and scapholunate dissociation. 4 view portable left knee No evidence of acute fracture. No aggressive bone destruction. Joint spaces appear intact. Alignment is intact. No significant soft tissue abnormality. IMPRESSION: No evidence of acute fracture or dislocation. Electronically signed by: Serafin Zamarripa MD (04/18/2019 1:44 PM) [id number]
[2019-04-18 14:58] VITALS: BP 163/72
== END 2019-04-18 15:05 | disposition home or self-care (01) ==
LOC: ER 11:52
DX: S01.111A Laceration without foreign body of right eyelid and periocular area, initial encounter (principal); S80.02XA Contusion of left knee, initial encounter; M25.532 Pain in left wrist; Z79.01 Long term (current) use of anticoagulants; I48.91 Unspecified atrial fibrillation; I25.10 Atherosclerotic heart disease of native coronary artery without angina pectoris; Z95.0 Presence of cardiac pacemaker; Z90.49 Acquired absence of other specified parts of digestive tract; Z88.0 Allergy status to penicillin; Z88.2 Allergy status to sulfonamides; W18.39XA Other fall on same level, initial encounter; Y93.89 Activity, other specified; Y92.89 Other specified places as the place of occurrence of the external cause; Y99.8 Other external cause status
CPT/HCPCS: 12013; 29125; 70450; 73110; 73564; 99284-25

== ENCOUNTER → 2019-08-12 | Outpatient (CLI) | payer MEDICARE, OTHER ==
[~2019-08-12] MED LIST changes: +DILT240C33 PO; -LEVO112T4 PO; +LEVO112T49 PO; -WARF-78 PO; +WARF5TAB2 PO
--- NOTE | 2019-08-13 09:14 | CARD ---
MR#: [id number] Date of Study: 08/12/2019 Ordering Physician: SHAWN GATICA, Referring Physician: SHAWN GATICA, Tech: Kristan Baires [facility] APPROVED REPORT EXAM: Two-dimensional and M-mode echocardiogram with Doppler and color Doppler. Other Information Quality : AverageHR: 71bpm Rhythm : NSR INDICATION Dyspnea Fatigue RISK FACTORS Hypertension 2D DIMENSIONS Left Atrium(2D)7.1 (1.6-4.0cm)IVSd1.1 (0.7-1.1cm) Aortic Root(2D)3.8 (2.0-3.7cm)LVDd5.5 (3.9-5.9cm) LVOT Diameter2.4 (1.8-2.4cm)PWd1.1 (0.7-1.1cm) LVDs4.3 (2.5-4.0cm)FS (%) 22.0 % SV63.9 ml Aortic Valve AoV Peak Vito.279.5cm/sAoV VTI50.8cm AO Peak GR.31.3mmHgLVOT Peak Vito.83.0cm/s AO Mean GR.15mmHgAVA (VMAX)1.35cm2 Mitral Valve MV E Sozettjv720.3cm/sMV DECEL ENDQ968nu MV A Euasuzqo79.0cm/sE/A Ratio4.8 Pulmonary Valve PV Peak Rzjjhkzr52.9cm/s Tricuspid Valve TR P. Ioqabwos816dt/sTR Peak Gr.32mmHg LEFT VENTRICLE The left ventricle is normal size. There is mild concentric left ventricular hypertrophy. The systoli c function is mild to moderately impaired. Estimated ejection fraction is 40%. There is global hypok inesis of the left ventricle. RIGHT VENTRICLE The right ventricle is normal size. There is normal right ventricular wall thickness. The right ventr icular systolic function is normal. ATRIA The left atrium is moderately dilated. The right atrium is moderately dilated. The interatrial septum is intact with no evidence for an atrial septal defect or patent foramen ovale as noted on 2-D or Do ppler imaging. AORTIC VALVE Doppler and Color Flow revealed trace to mild aortic regurgitation. There is a mechanical aortic valv e prosthesis. Max PG is calculated to be 31 mmHg. Mean PG 15 mmHg. MITRAL VALVE There is a mobile echo attached to the chordae may represent a vegitation. Doppler and Color-flow rev ealed mild to moderate mitral regurgitation. Mechanical mitral valve with max PG of 15mmHg and a mean PG 3.5 mmHg. TRICUSPID VALVE Doppler and Color Flow revealed moderate tricuspid regurgitation. Estimated PAP 43 mmHg. GREAT VESSELS The aortic root is mildly enlarged. IVC is dialted and unresponsive. PERICARDIAL EFFUSION There is no evidence of significant pericardial effusion. Critical Notification Critical Value: No <Conclusion> The left ventricle is normal size. The systolic function is mild to moderately impaired. Estimated ejection fraction is 40%. There is global hypokinesis of the left ventricle. There is mild concentric left ventricular hypertrophy. Doppler and Color Flow revealed trace to mild aortic regurgitation. There is a mechanical aortic valve prosthesis. Max PG is calculated to be 31 mmHg. Mean PG 15 mmHg. Doppler and Color-flow revealed mild to moderate mitral regurgitation. Mechanical mitral valve with max PG of 15mmHg and a mean PG 3.5 mmHg. There is a mobile echo attached to the chordae may represent a vegitation. Doppler and Color Flow revealed moderate tricuspid regurgitation. Estimated PAP 43 mmHg. The aortic root is mildly enlarged. Signed by : Shawn Gatica MD Electronically Approved : 08/13/2019 09:13:46
== END | disposition home or self-care (01) ==
LOC: ECHO 12:44
PROVIDERS: ATTEND Internal Medicine Cardiovascular Disease
DX: I08.3 Combined rheumatic disorders of mitral, aortic and tricuspid valves (principal); Z95.2 Presence of prosthetic heart valve
CPT/HCPCS: 93306

== ENCOUNTER → 2019-08-12 | Outpatient (CLI) | payer MEDICARE, OTHER ==
[~2019-08-12] MED LIST changes: -DILT240C33 PO
== END | disposition home or self-care (01) ==
LOC: LAB 14:27
PROVIDERS: ATTEND Internal Medicine Gastroenterology
DX: Z01.818 Encounter for other preprocedural examination (principal); Z11.59 Encounter for screening for other viral diseases; R19.5 Other fecal abnormalities
CPT/HCPCS: U0003-CS

== ENCOUNTER → 2019-08-17 | Day surgery (SDC) | payer MEDICARE, OTHER ==
[~2019-08-17] MED LIST changes: +CLINDAMYCIN 900MG PREMIX 50 ML IV ONE; +DEXAMETHASONE SOD PHOS 4 MG/ML VIAL ONE; +DILT240C33 PO; +IV RINGERS,LACTATED 1000ML 1,000 ML IV SCH; +LIDOCAINE 2% PF 5 ML VIAL. ONE; +ONDANSETRON PF 4 MG/2 ML VIAL. ONE; +PHENYLEPHRINE in 0.9% NACL PF 1 MG/10 ML SYRINGE. IV ONE; +PROPOFOL 10 MG/ML (20ML) VIAL. IV ONE; +ePHEDrine PF IN SALINE 50 MG/10 ML SYRINGE. IV ONE; +fentaNYL PF VIAL 100 MCG/2 ML VIAL ONE
[2019-08-17 08:39] VITALS: BP 152/72
--- NOTE | 2019-08-18 18:06 | PATHOLOGY ---
[facility] Accession Number: [id number] . 01 Material submitted: . PART A: cecum - CECAL BIOPSY PART B: hepatic flexure - HEPATIC FLEXURE MASS . 01 Clinical history: . + cologuard . 02 Diagnosis: A. Colon biopsies, cecal polyp: - Tubular adenoma. . B. Colon biopsies, hepatic flexure mass: - Tubulovillous adenoma. . ([facility]:mm; 08/18/2019) [facility] 08/18/2019 1314 Local . 02 Comment: There is no high grade dysplasia or evidence of malignancy. . ([facility]:mml; 08/18/2019) . 02 Electronically signed: . Richard Armendariz MD, Pathologist NPI- [id number] . 01 Gross description: . A. The specimen is received in formalin labeled "Tone, Alexia, cecal BX" and consists of multiple fragments of pink-boland tissue measuring 1.6 x 0.3 x 0.2 cm in aggregate which are entirely submitted in A1. . B. The specimen is received in formalin labeled "Tone, Alexia, hepatic flexure mass biopsy" and consists of multiple fragments of pink-boland tissue measuring 1.6 x 0.5 x 0.2 cm in aggregate which are entirely submitted in B1. ([facility]; 08/17/2019) JFQ/JFQ 08/17/2019 1710 Local . 02 Pathologist provided ICD-10: D12.0, D12.3 . 02 CPT . 346053, [id number] Specimen Comment: A courtesy copy of this report has been sent to [phone], [phone] Specimen Comment: [id number] Specimen Comment: Report sent to / DR COOL Performed at: 01 [facility] [address], [place], [place] [id number] MD Paolo Archer MD Phone: [phone] Performed at: 02 [facility] [address], [place] [id number] MD Richard Armendariz MD Phone: [phone]
== END ==
LOC: ENDOS 06:38
PROVIDERS: ATTEND Internal Medicine Gastroenterology
DX: R19.5 Other fecal abnormalities (principal); D12.0 Benign neoplasm of cecum; D12.4 Benign neoplasm of descending colon; K64.0 First degree hemorrhoids; E11.9 Type 2 diabetes mellitus without complications; I48.91 Unspecified atrial fibrillation; Z88.1 Allergy status to other antibiotic agents; Z88.0 Allergy status to penicillin; Z98.890 Other specified postprocedural states; Z79.84 Long term (current) use of oral hypoglycemic drugs
CPT/HCPCS: 45380; J2704; J3490; 88305; J1100; J2370; J2405; J3010

== ENCOUNTER → 2019-08-25 | Outpatient (CLI) | payer MEDICARE, OTHER ==
[2019-08-17 08:39] VITALS: BP 152/72
[~2019-08-25] MED LIST changes: -CLINDAMYCIN 900MG PREMIX 50 ML IV ONE; +CONTRAST GIVEN. MC PRN; -DEXAMETHASONE SOD PHOS 4 MG/ML VIAL ONE; +IOHEXOL 240 MG/ML 50ML VIAL. PO ONE; +IOHEXOL 300 MG/ML 100ML VIAL. IV ONE; -IV RINGERS,LACTATED 1000ML 1,000 ML IV SCH; -LIDOCAINE 2% PF 5 ML VIAL. ONE; -ONDANSETRON PF 4 MG/2 ML VIAL. ONE; -PHENYLEPHRINE in 0.9% NACL PF 1 MG/10 ML SYRINGE. IV ONE; -PROPOFOL 10 MG/ML (20ML) VIAL. IV ONE; -ePHEDrine PF IN SALINE 50 MG/10 ML SYRINGE. IV ONE; -fentaNYL PF VIAL 100 MCG/2 ML VIAL ONE
[2019-08-25 08:54] LABS: CREATININE 0.8 mg/dL (0.6-1.0); GFR 69.7
--- NOTE | 2019-08-25 11:07 | RAD ---
EXAM: CT ABDOMEN/PELVIS WITH CONTRAST. HISTORY: Colon mass. TECHNIQUE: Computed tomography of the abdomen and pelvis was performed after the intravenous administration of iodinated contrast. One or more of the following individualized dose reduction techniques were utilized for this examination: 1. Automated exposure control. 2. Adjustment of the mA and/or kV according to patient size. 3. Use of iterative reconstruction technique. COMPARISON: 06/18/2017. FINDINGS: Lung windows through the visualized portions of the bases reveal moderate cardiomegaly. There are dense mitral valve annular calcifications. Changes of coronary artery bypass grafting and pacemaker placement are partially visualized. There is bibasilar atelectasis/scarring. Bone windows reveal no suspicious lesions. A mild superior endplate compression fracture at L3 does not appear acute. A 1.6 cm hypoattenuating lesion in hepatic segment 3 is stable since the prior study and likely reflects a cyst. Scattered subcentimeter hypodensities throughout the spleen may reflect uncalcified granulomas. Others are calcified. The gallbladder is surgically absent. The pancreas and adrenal glands are unremarkable. Subcentimeter bilateral renal cysts appear benign. An endophytic polypoid mass is suspected within the right colon on axial image 43. It measures 2.8 x 2.4 cm. No transmural extension is identified. There is no small bowel obstruction. There are no pathologically enlarged lymph nodes. A septated cystic lesion within the right adnexa measures 4.4 x 3.6 cm. Another in the left adnexa measures 3.0 x 2.4 cm. These are stable to mildly increased since 2018, favoring benignity. Mild stranding throughout the retroperitoneal planes is mostly dependent and suggests edema. IMPRESSION: 1. Suspect a 2.8 cm endophytic polypoid mass along the ascending colon. Correlate for this as the site of the known mass. No locally advanced disease is identified. No lymphadenopathy or distant metastatic disease. 2. Bilateral cystic adnexal masses measure up to 4.4 cm on the right, but have been present chronically favoring benignity. These could be further evaluated with pelvic ultrasound if there is persistent concern. 3. Retroperitoneal and omental edema may reflect a systemic edematous state or possibly portal hypertension. Edema is favored over peritoneal/omental metastatic disease unless advanced stage diseases known. 4. Moderate cardiomegaly. Electronically signed by: Shorty Graves MD (08/25/2019 11:04 AM) [id number]
== END | disposition home or self-care (01) ==
LOC: CT 08:30
PROVIDERS: ATTEND Internal Medicine Gastroenterology
DX: K63.89 Other specified diseases of intestine (principal); N28.1 Cyst of kidney, acquired; K76.9 Liver disease, unspecified; I51.7 Cardiomegaly; Z95.0 Presence of cardiac pacemaker; Z90.49 Acquired absence of other specified parts of digestive tract
CPT/HCPCS: 36415; 74177; 82565; 84520; Q9966; Q9967

== ENCOUNTER 2019-08-26 22:27 | Inpatient (IN) | payer MEDICARE, OTHER ==
[~2019-08-26] VITALS: Ht 165.1 cm; Wt 68.1 kg
[~2019-08-26 22:27] MED LIST changes: -CONTRAST GIVEN. MC PRN; -DILT240C33 PO; -IOHEXOL 240 MG/ML 50ML VIAL. PO ONE; -IOHEXOL 300 MG/ML 100ML VIAL. IV ONE
--- NOTE | 2019-08-26 22:38 | PHYS DOC ---
Past Medical History Past Medical History: A-Fib, CAD, Other Additional Past Medical Histor: LUPUS ANTICOAGULANT Past Surgical History: Cholecystectomy, Pacemaker, Other Additional Past Surgical Histo: ARTIFICIAL VALVE X2, THYROID Smoking Status: Never Smoker Alcohol Use: None Drug Use: None General Adult EDM: Chief Complaint: CHEST PAIN HPI: HPI: B8-year-old female presents with a chief complaint of chest pain and generalized weakness. Patient states pain is anterior chest that radiates to the right and left and occasionally to her back. Patient states she has associated shortness of breath and increasing weakness. Patient states the chest pain comes and goes. Review of Systems: Review of Systems: Constitutional: Denies fever or chills. [] Eyes: Denies change in visual acuity. [] HENT: Denies nasal congestion or sore throat. [] Respiratory: Positive shortness of breath Cardiovascular: Positive chest pain GI: Denies abdominal pain, nausea, vomiting, bloody stools or diarrhea. [] : Denies dysuria. [] Musculoskeletal: Denies back pain or joint pain. [] Integument: Denies rash. [] Neurologic: Denies headache, focal weakness or sensory changes. [Positive generalized weakness] Endocrine: Denies polyuria or polydipsia. [] Lymphatic: Denies swollen glands. [] Psychiatric: Denies depression or anxiety. [] Heart Score: HEART Score for Chest Pain: HEART Score for Chest Pain Response (Comments) Value History Moderately Suspicious 1 ECG Nonspecific Repolarizatio 1 Risk Factors >3 Risk Factors or Hx CAD 2 Troponin < Normal Limit 0 Total 4 Risk Factors: Risk Factors: DM, Current or recent (<one month) smoker, HTN, HLP, family history of CAD, obesity. Risk Scores: Score 0 - 3: 2.5% MACE over next 6 weeks - Discharge Home Score 4 - 6: 20.3% MACE over next 6 weeks - Admit for Clinical Observation Score 7 - 10: 72.7% MACE over next 6 weeks - Early Invasive Strategies Allergies: Allergies: Allergies Coded Allergies Type Severity Reaction Last Updated Verified Penicillins Allergy Intermediate 08/17/19 Yes Sulfa (Sulfonamide Antibiotics) Allergy Intermediate 08/17/19 Yes Physical Exam: PE: Constitutional: Well developed, well nourished, no acute distress, non-toxic appearance. [] HENT: Normocephalic, atraumatic, bilateral external ears normal, oropharynx moist, no oral exudates, nose normal. [] Eyes: , EOMI, conjunctiva normal, no discharge. [] Neck: Normal range of motion, no tenderness, supple, no stridor. [] Cardiovascular: Tachycardia Lungs & Thorax: No respiratory distress Abdomen: Bowel sounds normal, soft, no tenderness, no masses, no pulsatile masses. [] Skin: Warm, dry, no erythema, no rash. [] Back: No tenderness, no CVA tenderness. [] Extremities: No tenderness, no cyanosis, no clubbing, ROM intact, no edema. [] Neurologic: Alert and oriented X 3, normal motor function, normal sensory function, no focal deficits noted. [] Psychologic: Affect normal, judgement normal, mood normal. [] EKG: EKG: [] Radiology/Procedures: Radiology/Procedures: [] Impression: CHEST AP ONLY INDICATION: Reason: chest pain / Spl. Instructions: / History: . COMPARISON STUDY: 02/16/2019. FINDINGS: Left pectoral transvenous dual-chamber pacemaker. Lungs: Normal lung volume. Prominent interstitial markings with Jimenez B lines. Pleura: No pleural effusion or pneumothorax. Heart and Mediastinum: Cardiomegaly. Tortuous atherosclerotic aorta. Median sternotomy. IMPRESSION: Interstitial edema. Course & Med Decision Making: Course & Med Decision Making Pertinent Labs and Imaging studies reviewed. (See chart for details) Patient was evaluated for chief complaint. Work-up consisted of laboratory analysis and radiologic imaging. Results reviewed and discussed with patient. Patient noted to have a troponin of 0.02. EKG tachycardic suspect A. fib. Patient's treatment initially included IV fluids and metoprolol 5 mg IV push. Patient's heart rate did not improve. Patient was then treated with Cardizem bolus with improvement of heart rate in the 90s and irregular. Cardizem drip was then ordered and is currently pending. BNP noted to be greater then 1900. Patient was treated with 40 mg of Lasix. Patient admitted to the hospitalist with cardiology consult Helen Disclaimer: Helen Disclaimer: This electronic medical record was generated, in whole or in part, using a voice recognition dictation system. Departure Departure Impression: Primary Impression: Chest pain Additional Impressions: Atrial fibrillation Elevated brain natriuretic peptide (BNP) level Disposition: ADMITTED INPATIENT Admitting Physician: Glen Hearn Condition: STABLE Referrals: GLEN HEARN MD (PCP) Justicifation of Admission Dx: Justifications for Admission: Justification of Admission Dx: Yes Comments: Jeovany fib RVR, chest pain BARBARA FULLER I DO Aug 26, 2019 22:38
[2019-08-26] MEDS ORDERED: IV NORMAL SALINE 1000ML BAG 1,000 ML IV ONE (22:45)
[2019-08-26] MEDS ORDERED: ONDANSETRON PF 4 MG/2 ML VIAL. ONE (22:53)
[2019-08-26 22:59] LABS: BASO # 0.1 x10^3/uL (0.0-0.2); BASO % 1 % (0-3); EOS # 0.4 x10^3/uL (0.0-0.7); EOS % 5 % (0-3); HEMATOCRIT 38.1 % (36.0-47.0); HEMOGLOBIN 12.4 g/dL (12.0-15.5); LYMPH # 1.4 x10^3/uL (1.0-4.8); LYMPH % 18 % (24-48); MEAN CORPUSCULAR HEMOGLOBIN 29 pg (25-35); MEAN CORPUSCULAR HGB CONC 33 g/dL (31-37); MEAN CORPUSCULAR VOLUME 89 fL (79-100); MONO # 1.3 x10^3/uL (0.0-1.1); MONO % 16 % (0-9); NEUT # 4.9 x10^3/uL (1.8-7.7); NEUT % 61 % (31-73); PLATELET COUNT 130 x10^3/uL (140-400); RED CELL DISTRIBUTION WIDTH 16.7 % (11.5-14.5); WHITE BLOOD COUNT 8.1 x10^3/uL (4.0-11.0)
[2019-08-26 23:10] LABS: CALCIUM 9.6 mg/dL (8.5-10.1); GFR 53.9; POTASSIUM 4.2 mmol/L (3.5-5.1)
[2019-08-26 23:14] LABS: DIG 0.7 ng/mL (0.9-2.0)
[2019-08-26 23:16] LABS: ALBUMIN 3.7 g/dL (3.4-5.0); ALBUMIN/GLOBULIN RATIO 1.2 (1.0-1.7); TOTAL BILIRUBIN 1.5 mg/dL (0.2-1.0); TOTAL PROTEIN 6.7 g/dL (6.4-8.2)
--- NOTE | 2019-08-26 23:20 | RAD ---
CHEST AP ONLY INDICATION: Reason: chest pain / Spl. Instructions: / History: . COMPARISON STUDY: 02/16/2019. FINDINGS: Left pectoral transvenous dual-chamber pacemaker. Lungs: Normal lung volume. Prominent interstitial markings with Jimenez B lines. Pleura: No pleural effusion or pneumothorax. Heart and Mediastinum: Cardiomegaly. Tortuous atherosclerotic aorta. Median sternotomy. IMPRESSION: Interstitial edema. Electronically signed by: John Rose MD (08/26/2019 11:17 PM) [facility] CENTERCarrie
[2019-08-27] VITALS (12 sets, daily range): BP systolic 102–164; BP diastolic 54–73
[2019-08-27] MEDS ORDERED: ONDANSETRON PF 4 MG/2 ML VIAL. IVP ONE ×2 (01:00→03:30)
[2019-08-27] MEDS ORDERED: ONDANSETRON PF 4 MG/2 ML VIAL. IV PRN (03:15)
[2019-08-27] MEDS ORDERED: METOPROLOL TARTRATE 5 MG/5 ML VIAL. IVP ONE (03:15)
[2019-08-27] MEDS ORDERED: FUROSEMIDE 40 MG/4 ML VIAL. IVP ONE (03:30)
[2019-08-27] MEDS ORDERED: dilTIAZem IV PUSH 25 MG/5 ML VIAL IVP ONE ×2 (04:30→05:45)
[2019-08-27] MEDS ORDERED: DILTIAZEM HCL 125 MG in IV NORMAL SALINE 100ML 100 ML IV ONE (05:00)
[2019-08-27] MEDS ORDERED: fentaNYL PF VIAL 100 MCG/2 ML VIAL IVP ONE (05:15)
[2019-08-27] MEDS ORDERED: oxyCODONE/APAP 5/325 1 TAB TABLET PO PRN (12:30)
[2019-08-27] MEDS ORDERED: ACETAMINOPHEN 500 MG TABLET PO PRN (12:30)
[2019-08-27] MEDS ORDERED: ALPRAZolam 0.25 MG TABLET PO PRN (13:00)
[2019-08-27] MEDS ORDERED: LOSARTAN POTASSIUM 50 MG TABLET. PO SCH (15:00)
[2019-08-27] MEDS: LOSARTAN POTASSIUM 25 MG TABLET. PO SCH (15:17)
[2019-08-27] MEDS: SOTALOL 80 MG TABLET. PO SCH ×2 (15:18→22:29)
[2019-08-27] MEDS: DIGOXIN 125 MCG TABLET. PO SCH (15:18)
[2019-08-27] MEDS: LEVOTHYROXINE 137 MCG TABLET PO SCH (15:31)
[2019-08-27] MEDS ORDERED: WARFARIN 5 MG TABLET. PO SCH (16:00)
[2019-08-27] MEDS ORDERED: DIGO250T3 PO (16:29)
[2019-08-27] MEDS ORDERED: DILT240C33 PO (16:29)
[2019-08-27] MEDS ORDERED: ZOLPIDEM 5 MG TABLET. PO SCH (21:00)
[2019-08-28] VITALS (13 sets, daily range): BP systolic 101–126; BP diastolic 54–64
[2019-08-28] MEDS: LEVOTHYROXINE 137 MCG TABLET PO SCH (06:44)
[2019-08-28] MEDS: DIGOXIN 125 MCG TABLET. PO SCH (09:21)
[2019-08-28] MEDS: SOTALOL 80 MG TABLET. PO SCH (09:21)
[2019-08-28] MEDS: LOSARTAN POTASSIUM 25 MG TABLET. PO SCH (09:22)
--- NOTE | 2019-08-28 09:53 | PDOC ---
Provider Note Provider Note [id number] Justicifation of Admission Dx: Justifications for Admission: Justification of Admission Dx: Yes GLEN COOL MD Aug 28, 2019 09:53
--- NOTE | 2019-08-28 10:01 | SSS ---
ADMIT DATE: 08/28/2019 CHIEF COMPLAINT: Nausea and weakness. HISTORY OF PRESENT ILLNESS: A 78-year-old white female with multiple chronic problems including atrial fibrillation, came in with generalized weakness and some right-sided sharp chest pain and nausea. Laboratory studies unremarkable. Platelet count normal at 130,000 for her and chest x-ray was clear. She remained in normal rhythm with her atrial fibrillation, was given a diltiazem drip because of mild blood pressure, but is doing well and comfortable to be followed as an outpatient at this point. FINAL DIAGNOSES: 1. Generalized weakness, multifactorial. 2. Chronic atrial fibrillation, rate controlled and anticoagulated. 3. Chronic idiopathic thrombocytopenic purpura. Platelets adequate. OPERATIONS, PROCEDURES, COMPLICATIONS: None. CONSULTATIONS: Dr. Mane's group. DISPOSITION: Home meds all remain the same. Activity as tolerated. Low salt intake. Regular INR test for her warfarin and follow up as needed. GLEN COOL MD DR: JUANITA/jennifer JOB#: [id number] / [id number]
--- NOTE | 2019-08-28 12:45 | NUR ---
Discharge Note: EDIE SOMMER [address] Discharge instructions and discharge home medications reviewed with Patient and a copy given. All questions have been answered and understanding verbalized. The following instructions and handouts were given: chest pain Discontinued lines and drains: Peripheral IV intact. Patient discharged to Home or Self Care with Spouse via Wheelchair
--- NOTE | 2019-08-29 06:38 | EKG ---
[facility] [address] [place] [address] Test Date: 2019-08-26 Test Time: 22:34:54 Pat Name: EDIE SOMMER Department: Room: Gender: F Community Educator: : 1940 Requested By: BARBARA FULLER Order Number: [id number] Reading MD: Measurements Intervals [place] Rate: 116 P: OR: QRS: 0 QRSD: 186 T: 156 QT: 356 QTc: 501 Interpretive Statements VENTRICULAR TACHYCARDIA ABNORMAL ECG RI6.02 No previous ECG available for comparison
== END 2019-08-28 12:45 | disposition home or self-care (01) | DRG 206 ==
LOC: ER 22:27 → ED HOLD 08-27 03:06 → 2 SOUTH 08-27 03:33 → OBSVTOIN 08-27 21:07
PROVIDERS: ADMIT Family Medicine; ATTEND Family Medicine
DX: M94.0 Chondrocostal junction syndrome [Tietze] (principal); D69.3 Immune thrombocytopenic purpura; I48.91 Unspecified atrial fibrillation; R53.1 Weakness; Z79.01 Long term (current) use of anticoagulants; Z90.49 Acquired absence of other specified parts of digestive tract; Z79.899 Other long term (current) drug therapy; I25.10 Atherosclerotic heart disease of native coronary artery without angina pectoris; Z88.0 Allergy status to penicillin; Z88.2 Allergy status to sulfonamides
CPT/HCPCS: 36415; 71045; 74177; 80053; 80162; 82565; 83735; 83880; 84484; 84520; 85025; 85610; 85730; 93005; 96361; 96374; G0378; G0379; J1940; J2405; J3010; J3490; J7030; Q9966; Q9967; 99285-25

== ENCOUNTER 2020-07-19 15:19 | Inpatient (IN) | payer MEDICARE, OTHER ==
[~2020-07-19] VITALS: Ht 165.1 cm; Wt 81.2 kg
[~2020-07-19 15:19] MED LIST changes: +DILT240C33 PO; -DRON400T PO; +DRON400T6 PO; +MIRA25TA PO; -MIRA50TA PO
[2020-07-19 15:59] VITALS: BP 175/101
[2020-07-19] MEDS ORDERED: oxyCODONE/APAP 5/325 1 TAB TABLET PO PRN (16:15)
--- NOTE | 2020-07-19 16:43 | NUR ---
Patient arrived to the unit around 1540. Upon admission it was noted the patient had a pacemaker placed in May and also appears she has HTN upon admission. Dr Hearn stated to admit to Med/Surg. Orders placed. Abran at bedside. IV started in left hand by SRINIVAS Rinaldi. Consult called to Aydin. Patient oriented to the hospital, unit, and her room. Will continue to monitor.
[2020-07-19 16:49] LABS: BASO % 1 % (0-3); EOS # 0.1 x10^3/uL (0.0-0.7); EOS % 2 % (0-3); HEMATOCRIT 41.9 % (36.0-47.0); HEMOGLOBIN 13.6 g/dL (12.0-15.5); LYMPH # 1.1 x10^3/uL (1.0-4.8); LYMPH % 25 % (24-48); MEAN CORPUSCULAR HEMOGLOBIN 30 pg (25-35); MEAN CORPUSCULAR HGB CONC 32 g/dL (31-37); MEAN CORPUSCULAR VOLUME 94 fL (79-100); MONO # 0.6 x10^3/uL (0.0-1.1); MONO % 15 % (0-9); NEUT # 2.4 x10^3/uL (1.8-7.7); NEUT % 56 % (31-73); PLATELET COUNT 90 x10^3/uL (140-400); RED BLOOD COUNT 4.48 x10^6/uL (3.50-5.40); RED CELL DISTRIBUTION WIDTH 18.1 % (11.5-14.5); WHITE BLOOD COUNT 4.2 x10^3/uL (4.0-11.0)
[2020-07-19 16:58] LABS: ALBUMIN 3.7 g/dL (3.4-5.0); ALBUMIN/GLOBULIN RATIO 1.4 (1.0-1.7); CREATININE 0.8 mg/dL (0.6-1.0); GFR 69.6; TOTAL BILIRUBIN 2.2 mg/dL (0.2-1.0); TOTAL PROTEIN 6.4 g/dL (6.4-8.2)
[2020-07-19] MEDS: IV DEXTROSE 5 %-0.45 % NACL 1,000 ML IV SCH (16:59)
[2020-07-19] MEDS: LOSARTAN POTASSIUM 25 MG TABLET. PO SCH (17:00)
[2020-07-19 17:20] LABS: PROTHROMBIN TIME PATIENT 45.2 SEC (11.7-14.0)
--- NOTE | 2020-07-19 17:37 | PDOC2 ---
CONSULT Date of Consult Date of Consult DATE: 07/19/20 TIME: 17:34 Reason for Consult Reason for Consult: Dysphagia/anorexia Past Medical History Cardiovascular: AFIB, CHF, HTN, Aortic stenosis Pulmonary: Bronchitis Heme/Onc: Other Past Surgical History Past Surgical History: Other Family History Family History: Hypertension Social History ALCOHOL: none Current Medications Current Medications Current Medications Levothyroxine Sodium (Synthroid) 137 mcg DAILY07 PO ; Start 07/20/20 at 07:00 Losartan Potassium (Cozaar) 25 mg DAILY PO Last administered on 07/19/20at 17:00; Start 07/19/20 at 17:00 Oxycodone/ Acetaminophen (Percocet 5/325) 1 tab PRN Q6HRS PRN PO PAIN; Start 07/19/20 at 16:15 Warfarin Sodium (Coumadin) 5 mg DAILY16 PO ; Start 07/20/20 at 16:00; Status UNV Alprazolam (Xanax) 0.25 mg PRN BID PRN PO ANXIETY / AGITATION; Start 07/19/20 at 16:30 Zolpidem Tartrate (Ambien) 5 mg QHS PO ; Start 07/19/20 at 21:00 Dextrose/Sodium Chloride 1,000 ml @ 60 mls/hr [id number] IV Last administered on 07/19/20at 16:59; Start 07/19/20 at 17:00 Citalopram Hydrobromide (CeleXA) 10 mg QHS PO ; Start 07/19/20 at 21:00 Warfarin Sodium (Coumadin) 5 mg DAILY16 PO ; Start 07/20/20 at 16:00 Warfarin Sodium (Coumadin Per Physician) 1 each PRN DAILY PRN MC SEE COMMENTS; Start 07/19/20 at 17:45 Active Scripts Active Reported Digoxin 250 Mcg Tablet 250 Mcg PO QODAY Diltiazem 24Hr Cd (Diltiazem HCl) 240 Mg Cap.er.24h 1 Cap PO DAILY 30 Days Losartan Potassium 50 Mg Tablet 25 Mg PO DAILY Coumadin (Warfarin Sodium) 7.5 Mg Tablet 7.5 Mg PO UD Coumadin (Warfarin Sodium) 5 Mg Tablet 5 Mg PO UD Levothyroxine Sodium 137 Mcg Tablet 1 Tab PO DAILY Acetaminophen 500 Mg Tablet 1 Tab PO Q6HRS PRN Zebutal 50-325-40 Mg Capsule (Butalb/Acetaminophen/Caffeine) 1 Each Capsule 1 Each PO PRN Q6HRS PRN Percocet 5-325 Mg Tablet (Oxycodone/Acetaminophen) 1 Each Tablet 1 Tab PO PRN Q6HRS PRN Sotalol (Sotalol Hcl) 160 Mg Tablet 160 Mg PO BID Zolpidem Tartrate 10 Mg Tablet 0.5 Tab PO QHS Alprazolam 0.25 Mg Tab.rapdis 0.25 Mg PO PRN BID PRN Allergies Allergies: Coded Allergies: Penicillins (Verified Allergy, Intermediate, 08/17/19) Has tolerated cefdinir Sulfa (Sulfonamide Antibiotics) (Verified Allergy, Intermediate, 08/17/19) Vitals VITALS Vital Signs Date Time Temp Pulse Resp B/P (MAP) Pulse Ox O2 Delivery O2 Flow Rate FiO2 07/19/20 17:00 84 175/101 07/19/20 16:38 Room Air 07/19/20 15:59 98.0 15 97 98.0 Labs Labs Laboratory Tests Test 07/19/20 16:35 White Blood Count 4.2 x10^3/uL (4.0-11.0) Red Blood Count 4.48 x10^6/uL (3.50-5.40) Hemoglobin 13.6 g/dL (12.0-15.5) Hematocrit 41.9 % (36.0-47.0) Mean Corpuscular Volume 94 fL (79-100) Mean Corpuscular Hemoglobin 30 pg (25-35) Mean Corpuscular Hemoglobin Concent 32 g/dL (31-37) Red Cell Distribution Width 18.1 % (11.5-14.5) Platelet Count 90 x10^3/uL (140-400) Neutrophils (%) (Auto) 56 % (31-73) Lymphocytes (%) (Auto) 25 % (24-48) Monocytes (%) (Auto) 15 % (0-9) Eosinophils (%) (Auto) 2 % (0-3) Basophils (%) (Auto) 1 % (0-3) Neutrophils # (Auto) 2.4 x10^3/uL (1.8-7.7) Lymphocytes # (Auto) 1.1 x10^3/uL (1.0-4.8) Monocytes # (Auto) 0.6 x10^3/uL (0.0-1.1) Eosinophils # (Auto) 0.1 x10^3/uL (0.0-0.7) Basophils # (Auto) 0.0 x10^3/uL (0.0-0.2) Prothrombin Time 45.2 SEC (11.7-14.0) Prothromb Time International Ratio 4.7 (0.8-1.1) Sodium Level 143 mmol/L (136-145) Potassium Level 4.0 mmol/L (3.5-5.1) Chloride Level 109 mmol/L (98-107) Carbon Dioxide Level 25 mmol/L (21-32) Anion Gap 9 (6-14) Blood Urea Nitrogen 20 mg/dL (7-20) Creatinine 0.8 mg/dL (0.6-1.0) Estimated GFR (Cockcroft-Gault) 69.6 BUN/Creatinine Ratio 25 (6-20) Glucose Level 94 mg/dL (70-99) Calcium Level 9.0 mg/dL (8.5-10.1) Total Bilirubin 2.2 mg/dL (0.2-1.0) Aspartate Amino Transf (AST/SGOT) 41 U/L (15-37) Alanine Aminotransferase (ALT/SGPT) 20 U/L (14-59) Alkaline Phosphatase 160 U/L (46-116) Total Protein 6.4 g/dL (6.4-8.2) Albumin 3.7 g/dL (3.4-5.0) Albumin/Globulin Ratio 1.4 (1.0-1.7) Thyroid Stimulating Hormone (TSH) 2.083 uIU/mL (0.358-3.74) Laboratory Tests Test 07/19/20 16:35 White Blood Count 4.2 x10^3/uL (4.0-11.0) Red Blood Count 4.48 x10^6/uL (3.50-5.40) Hemoglobin 13.6 g/dL (12.0-15.5) Hematocrit 41.9 % (36.0-47.0) Mean Corpuscular Volume 94 fL (79-100) Mean Corpuscular Hemoglobin 30 pg (25-35) Mean Corpuscular Hemoglobin Concent 32 g/dL (31-37) Red Cell Distribution Width 18.1 % (11.5-14.5) Platelet Count 90 x10^3/uL (140-400) Neutrophils (%) (Auto) 56 % (31-73) Lymphocytes (%) (Auto) 25 % (24-48) Monocytes (%) (Auto) 15 % (0-9) Eosinophils (%) (Auto) 2 % (0-3) Basophils (%) (Auto) 1 % (0-3) Neutrophils # (Auto) 2.4 x10^3/uL (1.8-7.7) Lymphocytes # (Auto) 1.1 x10^3/uL (1.0-4.8) Monocytes # (Auto) 0.6 x10^3/uL (0.0-1.1) Eosinophils # (Auto) 0.1 x10^3/uL (0.0-0.7) Basophils # (Auto) 0.0 x10^3/uL (0.0-0.2) Prothrombin Time 45.2 SEC (11.7-14.0) Prothromb Time International Ratio 4.7 (0.8-1.1) Sodium Level 143 mmol/L (136-145) Potassium Level 4.0 mmol/L (3.5-5.1) Chloride Level 109 mmol/L (98-107) Carbon Dioxide Level 25 mmol/L (21-32) Anion Gap 9 (6-14) Blood Urea Nitrogen 20 mg/dL (7-20) Creatinine 0.8 mg/dL (0.6-1.0) Estimated GFR (Cockcroft-Gault) 69.6 BUN/Creatinine Ratio 25 (6-20) Glucose Level 94 mg/dL (70-99) Calcium Level 9.0 mg/dL (8.5-10.1) Total Bilirubin 2.2 mg/dL (0.2-1.0) Aspartate Amino Transf (AST/SGOT) 41 U/L (15-37) Alanine Aminotransferase (ALT/SGPT) 20 U/L (14-59) Alkaline Phosphatase 160 U/L (46-116) Total Protein 6.4 g/dL (6.4-8.2) Albumin 3.7 g/dL (3.4-5.0) Albumin/Globulin Ratio 1.4 (1.0-1.7) Thyroid Stimulating Hormone (TSH) 2.083 uIU/mL (0.358-3.74) Assessment/Plan Assessment/Plan Dysphagia-with weight loss, differential includes: oropharyngeal disease, Walls's, malignancy, achalasia,Schatzki ring, peptic stricture, and/or eosinophillic esophagitis. Plan EGD in am with possible dilation and/or biopsy if above unhelpful, then speech path/neuro consult as well as imaging wiht increased LFTS- possible related to hemolysis with mechaincal valves FUll note dictated BOB BYRD MD Jul 19, 2020 17:37
[2020-07-19] MEDS ORDERED: PHYTONADIONE 10 MG/ML AMPUL. SQ ONE (18:00)
[2020-07-19 18:10] LABS: BILIRUBIN,URINE NEGATIVE (NEG); CLARITY,URINE CLEAR; COLOR,URINE YELLOW; NITRITE,URINE NEGATIVE (NEG); PH,URINE 5.5 (<5.0-8.0); PROTEIN,URINE NEGATIVE (NEG-TRACE); UROBILINOGEN,URINE 0.2 mg/dL (0.2 mg/dL)
[2020-07-19 18:19] LABS: BACTERIA,URINE 0 /HPF (0-FEW); RBC,URINE 0 /HPF (0-2); WBC,URINE OCC /HPF (0-4)
[2020-07-19 19:00] VITALS: BP 165/80
--- NOTE | 2020-07-19 21:11 | HP ---
ADMIT DATE: 07/19/2020 CHIEF COMPLAINT: Weakness and nausea. HISTORY OF PRESENT ILLNESS: This 79-year-old white female has had ongoing increasing weakness over the last few weeks. She has frequent nausea, some degree of early satiety, but denies any overt emesis, heartburn, dysphagia, melena, hematochezia, fever, weight loss or other symptoms. She recently had a pacemaker change in ____ and multiple labs, all of which she was told were normal and no specific cause for the weakness and nausea has been found. She no longer is able to ambulate because of level of weakness that she is experiencing and is admitted for further evaluation. PAST MEDICAL HISTORY: She has a mitral valve replacement in place. MEDICATIONS: She takes warfarin for this along with multiple other meds. ALLERGIES: No allergies to drugs are known at this time. No other serious known medical problems. SOCIAL HISTORY: She is , not physically active, nonsmoker, nondrinker. FAMILY HISTORY: Unremarkable. REVIEW OF SYSTEMS: Unremarkable. OBJECTIVE: ENT: All within normal limits. No pallor or jaundice. NECK: No masses, nodes, bruits or thyroid enlargement. LUNGS: Clear, without tachypnea. CARDIOVASCULAR: Regular rate. Valve clicks noted in the apex to the left axillary area. BREASTS: Not examined. ABDOMEN: Soft, benign, nontender. No masses or guarding. EXTREMITIES: Good pedal and radial pulses. No joints or skin lesions or edema. Nailbeds are not pale. NEUROLOGIC: Physiologic. She is depressed, mildly anxious. ASSESSMENT: Ongoing anxiety, depression, weakness and nausea. PLAN: GI consult to consider endoscopy. We will repeat screening labs, which have been normal recently and we will add starting dose of sertraline as well for the panic attacks and depression that she appears to be experiencing. May well need rehab for therapy as she is not able to walk safely to be at home. JUANITA/FLORINA/LAWSON DR: JUANITA/jennifer TID: [id number]
[2020-07-19] MEDS: ALPRAZolam 0.25 MG TABLET PO PRN (21:16)
[2020-07-19] MEDS: CITALOPRAM 10 MG TABLET. PO SCH (21:16)
[2020-07-19] MEDS: ZOLPIDEM 5 MG TABLET. PO SCH (21:16)
[2020-07-19] MEDS: ONDANSETRON PF 4 MG/2 ML VIAL. IVP PRN (22:09)
[2020-07-19 23:00] VITALS: BP 153/88
[2020-07-20] VITALS (10 sets, daily range): BP systolic 152–187; BP diastolic 80–107
--- NOTE | 2020-07-20 05:47 | CONS ---
DATE OF CONSULTATION: 07/19/2020 GI CONSULTATION REASON FOR CONSULTATION: Dysphagia and nausea. HISTORY OF PRESENT ILLNESS: A 79-year-old female whose past medical history is significant for organic heart disease, status post aortic and mitral valve replacements; hypertension; hypothyroidism; who was admitted with weakness, failure to thrive, and difficulty swallowing. The patient states she has been losing weight. She has troubles with liquids going down where she feels full and regurgitates back up. She has not been a drinker or smoker through the years and has not had dysphagia in the past with ongoing symptoms. Consultation is requested. PAST MEDICAL HISTORY: Organic heart disease, status post aortic and mitral valve replacements; hypertension; hypothyroidism; and cardiac arrhythmias. ALLERGIES: PENICILLIN AND SULFA. MEDICATIONS: Alprazolam, citalopram, levothyroxine, losartan, oxycodone, warfarin, and zolpidem. SOCIAL HISTORY: She is retired. She does not drink or smoke at this time. FAMILY HISTORY: Noncontributory. REVIEW OF SYSTEMS: Per records. PHYSICAL EXAMINATION: GENERAL: Reveals a thin, disheveled white female who is alert, cooperative, in mild distress. VITAL SIGNS: Temperature is 98, pulse 84, respiratory rate 15, and blood pressure is 175/101. LUNGS: Reveal decreased breath sounds anteriorly. HEART: Reveals S1, S2 with a 3/6 systolic ejection murmur heard best at the right upper sternal border consistent with aortic valve replacement. ABDOMEN: Reveals a soft abdomen with normal bowel sounds. I did not appreciate hepatosplenomegaly. EXTREMITIES: No cyanosis, clubbing or edema. LABORATORY DATA: Hemoglobin is 13.6, hematocrit 41.9, white count 4.2, and platelet count is 90,000. Sed rate is 37. Sodium 148, potassium 4.1, chloride 109, bicarbonate 25, BUN ____, creatinine 0.8, glucose is 94, calcium is 9.0, total bilirubin 2.2, AST of 41, ALT of 20, and alkaline phosphatase is 160. INR is 4.7. ASSESSMENT AND PLAN: Dysphagia, etiology to be determined; oropharyngeal disease; achalasia; malignancy; Schatzki ring; eosinophilic esophagitis; and peptic ulcer disease are certainly in the differential. Upper endoscopy with possible biopsy or dilatation, anticoagulation will be somewhat reversed with Coumadin, recheck labs in the a.m. If this is unhelpful, then neurologic and speech pathology evaluations will be recommended for further assessment of her swallowing difficulties. HARSHAD/CRISTIN/PERRY DR: Pato TID: [id number]
[2020-07-20] MEDS: LEVOTHYROXINE 137 MCG TABLET PO SCH (07:00)
[2020-07-20 07:06] LABS: PROTHROMBIN TIME PATIENT 38.1 SEC (11.7-14.0)
[2020-07-20] MEDS ORDERED: PHYTONADIONE 10 MG/ML AMPUL. SQ ONE (08:00)
[2020-07-20] MEDS ORDERED: IV RINGERS,LACTATED 1000ML 1,000 ML IV ONE (08:15)
--- NOTE | 2020-07-20 08:33 | PDOC ---
Provider Note Date of Service: DATE: 07/20/20 TIME: 08:32 Provider Note smiling, alert, labs and vs good , but bili 2.2- will check total/direct- egd today, then see- added celexa on admit- may need rehab re weakness Justifications for Admission Other Justification GLEN COOL MD Jul 20, 2020 08:33
[2020-07-20 08:50] LABS: TOTAL BILIRUBIN 2.4 mg/dL (0.2-1.0)
[2020-07-20] MEDS: LOSARTAN POTASSIUM 25 MG TABLET. PO SCH (09:00)
[2020-07-20] MEDS: ONDANSETRON PF 4 MG/2 ML VIAL. IVP PRN ×2 (09:15→17:16)
[2020-07-20] MEDS ORDERED: PROPOFOL 10 MG/ML (20ML) VIAL. IV ONE (10:08)
[2020-07-20] MEDS ORDERED: LIDOCAINE 2% PF 5 ML VIAL. ONE (10:08)
--- NOTE | 2020-07-20 10:12 | PDOC4 ---
Operative Note Operative Note EGD with bx Pre-op dx Dysphagia post-op dx hypertonic LES gastric/duodenal ulcers s/p bx Plan PPI therapy for ulcers pending biopsies Nirto 0.3 mg sl ac q hs for possible achalasia esophagram to further asess o/p esophageal manometry to assess LES and motility BOB BYRD MD Jul 20, 2020 10:12
[2020-07-20] MEDS: PANTOPRAZOLE 40 MG TABLET.DR. PO SCH (10:15)
--- NOTE | 2020-07-20 10:50 | NUR ---
SW following. Discussed with RN, pt from home with spouse, room air, NPO. Pt had an EGD today. PT ordered, RN ordering OT. SW will continue to follow.
[2020-07-20] MEDS ORDERED: NITROGLYCERIN SUBLINGUAL 0.4 MG BOTTLE OF 25. SL PRN (11:00)
[2020-07-20] MEDS ORDERED: BARIUM SULFATE 60% 355 ML SUSP PO ONE (12:45)
[2020-07-20] MEDS ORDERED: SIMETHICONE/SOD BICARB/CITRIC ACID PACKET. PO ONE (12:45)
[2020-07-20] MEDS ORDERED: BARIUM SULFATE 340 GM SUSPENSION. PO ONE (12:45)
--- NOTE | 2020-07-20 15:50 | RAD ---
EXAMINATION: DG VIDEO SWALLOW STUDY 07/20/2020 1:51 PM HISTORY: Choking sensation, achalasia, feels like things get. COMPARISON: None. TECHNIQUE: The patient was observed swallowing various consistencies of barium under intermittent flu oroscopy. FINDINGS: Suboptimal evaluation of mucosa on air contrast portion of the exam. There are no filling defects. Th ere was dysmotility with bolus breakup and retention of barium in the upper thoracic esophagus throug hout the exam. The esophagus is mildly distended, greatest proximally. The distal esophagus or is mor e narrowed including at the GE junction but this may be due to small boluses reaching the distal esop hagus rather than achalasia. No hiatal hernia. No definite reflux noted during the exam. Total fluoroscopic time:3.3 minutes. IMPRESSION: Esophageal dysmotility with retention of contrast in the mildly patulous upper thoracic e sophagus during the exam. Electronically signed by: Katiuska Zurita MD (07/20/2020 3:48 PM) [id number]
[2020-07-20] MEDS ORDERED: WARFARIN 5 MG TABLET. PO SCH (16:00)
--- NOTE | 2020-07-20 17:05 | PDOC ---
G I PROGRESS NOTE Reason for Follow-up Dysphagia Review of Relevant I have reviewed the following items nani (where applicable) has been applied. Labs Laboratory Tests Test 07/19/20 16:35 07/19/20 17:55 07/20/20 06:10 White Blood Count 4.2 x10^3/uL (4.0-11.0) Red Blood Count 4.48 x10^6/uL (3.50-5.40) Hemoglobin 13.6 g/dL (12.0-15.5) Hematocrit 41.9 % (36.0-47.0) Mean Corpuscular Volume 94 fL (79-100) Mean Corpuscular Hemoglobin 30 pg (25-35) Mean Corpuscular Hemoglobin Concent 32 g/dL (31-37) Red Cell Distribution Width 18.1 % (11.5-14.5) Platelet Count 90 x10^3/uL (140-400) Neutrophils (%) (Auto) 56 % (31-73) Lymphocytes (%) (Auto) 25 % (24-48) Monocytes (%) (Auto) 15 % (0-9) Eosinophils (%) (Auto) 2 % (0-3) Basophils (%) (Auto) 1 % (0-3) Neutrophils # (Auto) 2.4 x10^3/uL (1.8-7.7) Lymphocytes # (Auto) 1.1 x10^3/uL (1.0-4.8) Monocytes # (Auto) 0.6 x10^3/uL (0.0-1.1) Eosinophils # (Auto) 0.1 x10^3/uL (0.0-0.7) Basophils # (Auto) 0.0 x10^3/uL (0.0-0.2) Prothrombin Time 45.2 SEC (11.7-14.0) 38.1 SEC (11.7-14.0) Prothromb Time International Ratio 4.7 (0.8-1.1) 3.8 (0.8-1.1) Sodium Level 143 mmol/L (136-145) Potassium Level 4.0 mmol/L (3.5-5.1) Chloride Level 109 mmol/L (98-107) Carbon Dioxide Level 25 mmol/L (21-32) Anion Gap 9 (6-14) Blood Urea Nitrogen 20 mg/dL (7-20) Creatinine 0.8 mg/dL (0.6-1.0) Estimated GFR (Cockcroft-Gault) 69.6 BUN/Creatinine Ratio 25 (6-20) Glucose Level 94 mg/dL (70-99) Calcium Level 9.0 mg/dL (8.5-10.1) Total Bilirubin 2.2 mg/dL (0.2-1.0) 2.4 mg/dL (0.2-1.0) Aspartate Amino Transf (AST/SGOT) 41 U/L (15-37) Alanine Aminotransferase (ALT/SGPT) 20 U/L (14-59) Alkaline Phosphatase 160 U/L (46-116) Total Protein 6.4 g/dL (6.4-8.2) Albumin 3.7 g/dL (3.4-5.0) Albumin/Globulin Ratio 1.4 (1.0-1.7) Thyroid Stimulating Hormone (TSH) 2.083 uIU/mL (0.358-3.74) Urine Collection Type Unknown Urine Color Yellow Urine Clarity Clear Urine pH 5.5 (<5.0-8.0) Urine Specific [place] 1.025 (1.000-1.030) Urine Protein Negative mg/dL (NEG-TRACE) Urine Glucose (UA) Negative mg/dL (NEG) Urine Ketones (Stick) Negative mg/dL (NEG) Urine Blood Negative (NEG) Urine Nitrite Negative (NEG) Urine Bilirubin Negative (NEG) Urine Urobilinogen Dipstick 0.2 mg/dL (0.2 mg/dL) Urine Leukocyte Esterase Negative (NEG) Urine RBC 0 /HPF (0-2) Urine WBC Occ /HPF (0-4) Urine Squamous Epithelial Cells Few /LPF Urine Bacteria 0 /HPF (0-FEW) Urine Mucus Mod /LPF Magnesium Level 2.0 mg/dL (1.8-2.4) Direct Bilirubin 1.0 mg/dL (0.0-0.2) Laboratory Tests Test 07/19/20 17:55 07/20/20 06:10 Urine Collection Type Unknown Urine Color Yellow Urine Clarity Clear Urine pH 5.5 (<5.0-8.0) Urine Specific [place] 1.025 (1.000-1.030) Urine Protein Negative mg/dL (NEG-TRACE) Urine Glucose (UA) Negative mg/dL (NEG) Urine Ketones (Stick) Negative mg/dL (NEG) Urine Blood Negative (NEG) Urine Nitrite Negative (NEG) Urine Bilirubin Negative (NEG) Urine Urobilinogen Dipstick 0.2 mg/dL (0.2 mg/dL) Urine Leukocyte Esterase Negative (NEG) Urine RBC 0 /HPF (0-2) Urine WBC Occ /HPF (0-4) Urine Squamous Epithelial Cells Few /LPF Urine Bacteria 0 /HPF (0-FEW) Urine Mucus Mod /LPF Prothrombin Time 38.1 SEC (11.7-14.0) Prothromb Time International Ratio 3.8 (0.8-1.1) Magnesium Level 2.0 mg/dL (1.8-2.4) Total Bilirubin 2.4 mg/dL (0.2-1.0) Direct Bilirubin 1.0 mg/dL (0.0-0.2) Medications Current Medications Levothyroxine Sodium (Synthroid) 137 mcg DAILY07 PO ; Start 07/20/20 at 07:00 Losartan Potassium (Cozaar) 25 mg DAILY PO Last administered on 07/19/20at 17:00; Start 07/19/20 at 17:00 Oxycodone/ Acetaminophen (Percocet 5/325) 1 tab PRN Q6HRS PRN PO PAIN; Start 07/19/20 at 16:15 Warfarin Sodium (Coumadin) 5 mg DAILY16 PO ; Start 07/20/20 at 16:00; Status UNV Alprazolam (Xanax) 0.25 mg PRN BID PRN PO ANXIETY / AGITATION Last administered on 07/19/20at 21:16; Start 07/19/20 at 16:30 Zolpidem Tartrate (Ambien) 5 mg QHS PO Last administered on 07/19/20at 21:16; Start 07/19/20 at 21:00 Dextrose/Sodium Chloride 1,000 ml @ 60 mls/hr [id number] IV Last administered on 07/19/20at 16:59; Start 07/19/20 at 17:00 Citalopram Hydrobromide (CeleXA) 10 mg QHS PO Last administered on 07/19/20at 21:16; Start 07/19/20 at 21:00 Warfarin Sodium (Coumadin) 5 mg DAILY16 PO ; Start 07/20/20 at 16:00 Warfarin Sodium (Coumadin Per Physician) 1 each PRN DAILY PRN MC SEE COMMENTS L ast administered on 07/20/20at 13:11; Start 07/19/20 at 17:45 Phytonadione (Vitamin K Ampule) 10 mg 1X ONCE SQ Last administered on 07/19/20at 17:59; Start 07/19/20 at 18:00; Stop 07/19/20 at 18:01; Status DC Ondansetron HCl (Zofran) 4 mg PRN Q6HRS PRN IVP NAUSEA/VOMITING 1ST CHOICE Last administered on 07/20/20at 09:15; Start 07/19/20 at 21:30 Phytonadione (Vitamin K Ampule) 10 mg 1X ONCE SQ Last administered on 07/20/20at 08:34; Start 07/20/20 at 08:00; Stop 07/20/20 at 08:01; Status DC Ringer's Solution 1,000 ml @ 75 mls/hr 1X ONCE IV ; Start 07/20/20 at 08:15; Stop 07/20/20 at 21:34 Propofol (Diprivan) 200 mg STK-MED ONCE IV ; Start 07/20/20 at 10:08; Stop 07/20/20 at 10:08; Status DC Lidocaine HCl (Lidocaine Pf 2% Vial) 5 ml STK-MED ONCE .ROUTE ; Start 07/20/20 at 10:08; Stop 07/20/20 at 10:08; Status DC Pantoprazole Sodium (Protonix) 40 mg DAILYAC PO ; Start 07/20/20 at 10:15 Nitroglycerin (Nitrostat) 0.4 mg PRN BFRMEAL PRN SL MUSCLE SPASMS; Start 07/20/20 at 11:00 Barium Sulfate (Liquid E-Z Paque) 355 ml 1X ONCE PO Last administered on 07/20/20at 13:10; Start 07/20/20 at 12:45; Stop 07/20/20 at 12:46; Status DC Barium Sulfate (E-Z-Hd) 340 gm 1X ONCE PO Last administered on 07/20/20at 13:10; Start 07/20/20 at 12:45; Stop 07/20/20 at 12:46; Status DC Simethicone/ Sodium Bicarb/ Citric Ac (E-Z-Gas) 1 packet 1X ONCE PO Last administered on 07/20/20at 13:10; Start 07/20/20 at 12:45; Stop 07/20/20 at 12:46; Status DC Active Scripts Active Reported Digoxin 250 Mcg Tablet 250 Mcg PO QODAY Diltiazem 24Hr Cd (Diltiazem HCl) 240 Mg Cap.er.24h 1 Cap PO DAILY 30 Days Losartan Potassium 50 Mg Tablet 25 Mg PO DAILY Coumadin (Warfarin Sodium) 7.5 Mg Tablet 7.5 Mg PO UD Coumadin (Warfarin Sodium) 5 Mg Tablet 5 Mg PO UD Levothyroxine Sodium 137 Mcg Tablet 1 Tab PO DAILY Acetaminophen 500 Mg Tablet 1 Tab PO Q6HRS PRN Zebutal 50-325-40 Mg Capsule (Butalb/Acetaminophen/Caffeine) 1 Each Capsule 1 Each PO PRN Q6HRS PRN Percocet 5-325 Mg Tablet (Oxycodone/Acetaminophen) 1 Each Tablet 1 Tab PO PRN Q6HRS PRN Sotalol (Sotalol Hcl) 160 Mg Tablet 160 Mg PO BID Zolpidem Tartrate 10 Mg Tablet 0.5 Tab PO QHS Alprazolam 0.25 Mg Tab.rapdis 0.25 Mg PO PRN BID PRN Vitals/I & O Vital Sign - Last 24 Hours 07/19/20 07/19/20 07/19/20 07/20/20 19:00 20:00 23:00 03:00 Temp 97.8 98.1 98.0 97.8 98.1 98.0 Pulse 80 80 83 Resp 15 15 15 B/P (MAP) 165/80 (108) 153/88 (109) 161/85 (110) Pulse Ox 97 95 96 O2 Delivery Room Air Room Air Room Air Room Air 07/20/20 07/20/20 07/20/20 07/20/20 07:00 08:15 09:00 09:06 Temp 97.8 98.1 97.8 98.1 Pulse 80 82 Resp 17 20 B/P (MAP) 155/83 (107) Pulse Ox 97 94 O2 Delivery Room Air Room Air Room Air 07/20/20 07/20/20 07/20/20 07/20/20 10:05 10:21 10:44 10:59 Temp 97.5 98.1 97.5 98.1 Pulse 84 79 80 83 Resp 20 16 17 17 B/P (MAP) 123/66 135/62 160/82 (108) 170/90 (116) Pulse Ox 100 92 95 95 O2 Delivery Nasal Cannula Room Air Room Air Room Air O2 Flow Rate 3 07/20/20 07/20/20 07/20/20 11:14 11:29 15:00 Temp 98.2 98.2 Pulse 82 80 80 Resp 17 19 17 B/P (MAP) 187/107 (133) 186/94 (124) 179/86 (117) Pulse Ox 96 94 98 O2 Delivery Room Air Room Air Room Air Problem List Dysphagia- esophagram demonstrates 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 o/p manoimetry if symptoms persit, advance diet as tolerated Justicifation of Admission Dx: Justifications for Admission: Justification of Admission Dx: Yes BOB BYRD MD Jul 20, 2020 17:05
[2020-07-20] MEDS: IV DEXTROSE 5 %-0.45 % NACL 1,000 ML IV SCH (17:16)
[2020-07-20] MEDS: WARFARIN 5 MG TABLET. PO SCH (17:16)
[2020-07-20] MEDS: CITALOPRAM 10 MG TABLET. PO SCH (22:00)
[2020-07-20] MEDS: ZOLPIDEM 5 MG TABLET. PO SCH (22:00)
[2020-07-20] MEDS: ALPRAZolam 0.25 MG TABLET PO PRN (22:06)
[2020-07-21] MEDS: IV DEXTROSE 5 %-0.45 % NACL 1,000 ML IV SCH ×2 (02:20→08:46)
--- NOTE | 2020-07-21 02:20 | NUR ---
Iv fluids not changed at this time, as continues to have fluids infusing from previous bag.
[2020-07-21 03:26] VITALS: BP 182/89
[2020-07-21] MEDS: LEVOTHYROXINE 137 MCG TABLET PO SCH (06:30)
[2020-07-21 07:00] VITALS: BP 166/79
[2020-07-21 07:55] LABS: PROTHROMBIN TIME PATIENT 20.8 SEC (11.7-14.0)
[2020-07-21] MEDS: PANTOPRAZOLE 40 MG TABLET.DR. PO SCH (08:44)
[2020-07-21] MEDS: LOSARTAN POTASSIUM 25 MG TABLET. PO SCH (08:45)
[2020-07-21 10:07] VITALS: BP 189/98
--- NOTE | 2020-07-21 10:11 | PDOC ---
GI PROGRESS NOTES Date of Service: Date/Time DATE: 07/21/20 TIME: 10:09 Subjective Subjective Intermittent dysphagia and regurgitation. EGD shows some spasm in the distal esophagus with a spastic lower esophageal sphincter region. Barium swallow reveals retention of barium in the upper esophagus but no obvious dilated esophagus or achalasia features Objective Vitals Vital Signs Date Time Temp Pulse Resp B/P (MAP) Pulse Ox O2 Delivery O2 Flow Rate FiO2 07/21/20 08:45 80 166/79 07/21/20 07:00 98.1 80 18 166/79 (108) 96 Room Air 98.1 07/21/20 03:26 98.8 79 18 182/89 (120) 95 Room Air 98.8 07/20/20 23:00 98.4 80 18 165/86 (112) 92 Room Air 98.4 07/20/20 20:30 Room Air 07/20/20 19:00 98.0 80 18 152/88 (109) 93 Room Air 98.0 07/20/20 15:00 98.2 80 17 179/86 (117) 98 Room Air 98.2 07/20/20 11:29 80 19 186/94 (124) 94 Room Air 07/20/20 11:14 82 17 187/107 (133) 96 Room Air 07/20/20 10:59 83 17 170/90 (116) 95 Room Air 07/20/20 10:44 98.1 80 17 160/82 (108) 95 Room Air 98.1 07/20/20 10:21 79 16 135/62 92 Room Air Labs Labs Laboratory Tests Test 07/21/20 07:00 Prothrombin Time 20.8 SEC (11.7-14.0) Prothromb Time International Ratio 1.8 (0.8-1.1) Physical Exam Physical Exam Chest clear Abdomen soft Assessment Assessment Intermittent dysphagia and regurgitation. Endoscopy did not reveal stricture but did reveal spasm without evidence of neoplasia. These findings in concert with her barium swallow may suggest a primary motor disorder including presbyesophagus and or a variant of achalasia. We will try a full liquid diet and eventually a soft diet as tolerated Agree with as needed antispasmodic therapy such as nitroglycerin or hyoscyamine but long-term, esophageal manometry to evaluate lower esophageal sphincter function would be appropriate. Our office will arrange this in the outpatient setting in the next several weeks. If spastic features are noted then Botox injection may be appropriate for this patient Justicifation of Admission Dx: Justifications for Admission: Justification of Admission Dx: Yes MARY DAVIS MD Jul 21, 2020 10:11
--- NOTE | 2020-07-21 13:04 | NUR ---
Pt IV is leaking and she does not want it replaced. Pt has advanced to [facility] without issues. Call placed to Dr. Hearn at this time, order to DC IV
--- NOTE | 2020-07-21 13:56 | PN ---
DATE: 07/21/2020 LOCATION: She is in room 440. SUBJECTIVE: This 79-year-old white female remains hospitalized with ongoing weakness. She does state that she does feel hungry this morning, would like something more than clear liquids and diet has been ordered yesterday by GI to advance as tolerated, so she should get more as the day goes on. PT has not seen her yet to evaluate for the weakness. OBJECTIVE: VITAL SIGNS: Stable. She is afebrile. Blood pressures are somewhat on the high side. CHEST: Clear. HEART: Regular with mechanical valve. [place] sounds. ABDOMEN: Benign. EXTREMITIES: Without cyanosis, clubbing, or edema. LABORATORY DATA: Since admission is remarkable primarily for a coagulopathy on admission with a protime trending down and 1.8 this morning. We will see where she is at tomorrow morning. She should get 5 mg of Coumadin today. She did have some thrombocytopenia with a platelet count of 90 on admission, bilirubin yesterday of 2.4 with a direct portion of 1. EGD yesterday shows some gastric and duodenal ulcers that were biopsied and hypertonic lower esophageal sphincter. Outpatient manometry is felt necessary by GI on discharge. IMPRESSION: 1. Weakness with failure to thrive, multifactorial. 2. Gastric and duodenal ulcers and possible achalasia. 3. Status post valve replacement. 4. Permanent pacemaker placement with recent change. 5. Thrombocytopenia. 6. Mildly elevated bilirubin. 7. Weakness. PLAN: Await therapy evaluation with suggestions on discharge destination. She does live with her and they would really like to get home and then advance diet as tolerated. Otherwise, same. ISABEL AKERS: Daniele TID: [id number]
[2020-07-21 14:39] VITALS: BP 138/78
[2020-07-21] MEDS: WARFARIN 5 MG TABLET. PO SCH (17:25)
[2020-07-21 19:00] VITALS: BP 169/86
[2020-07-21] MEDS: CITALOPRAM 10 MG TABLET. PO SCH (20:44)
[2020-07-21] MEDS: ZOLPIDEM 5 MG TABLET. PO SCH (20:44)
[2020-07-21 23:04] VITALS: BP 164/83
[2020-07-22 03:16] VITALS: BP 148/80
[2020-07-22] MEDS: LEVOTHYROXINE 137 MCG TABLET PO SCH (06:22)
[2020-07-22 07:00] VITALS: BP 160/86
[2020-07-22 08:26] LABS: PROTHROMBIN TIME PATIENT 17.6 SEC (11.7-14.0)
[2020-07-22] MEDS: PANTOPRAZOLE 40 MG TABLET.DR. PO SCH (08:30)
[2020-07-22] MEDS: LOSARTAN POTASSIUM 25 MG TABLET. PO SCH (08:31)
[2020-07-22 11:00] VITALS: BP 157/89
[2020-07-22] MEDS: IV DEXTROSE 5 %-0.45 % NACL 1,000 ML IV SCH (11:37)
--- NOTE | 2020-07-22 12:38 | NUR ---
Pt wanting to go home. She is ambulating with a walker through the holly with . Gait is steady. She denies pain or discomfort. Spoke with Dr. Hearn at 1115, he is ok for her to discharge to home after lunch if she does well with the GI soft. She will need to call his office in the morning, 6/7 for scripts to be sent to pharmacy.
[2020-07-22] MEDS ORDERED: WARFARIN 3 MG TABLET. PO SCH (14:00)
--- NOTE | 2020-07-22 14:28 | NUR ---
patient is being discharged home with self care. Patient refused SNU Eval .
--- NOTE | 2020-07-22 15:32 | NUR ---
patient verbalized understanding of discharge instructions. patient discharged home.
--- NOTE | 2020-07-22 21:02 | PN ---
DATE: 07/22/2020 DAILY PROGRESS NOTE LOCATION: She is in room 440. SUBJECTIVE: This 79-year-old white female remains hospitalized with ongoing weakness, anorexia. She states she has had a better appetite, is feeling better other than some tremor, which she hopes goes away and is ready to go home. Therapy did evaluate her yesterday and suggested fpc, so we will put an evaluation for the same. She does have a who she lives with, who she states is sturdy enough to handle her. OBJECTIVE: VITAL SIGNS: Stable. She is afebrile. CHEST: Clear. HEART: Regular with mechanical valve. ABDOMEN: Benign. EXTREMITIES: Unremarkable. LABORATORY DATA: INR this morning is 1.5 and we will increase warfarin to 6 mg today. IMPRESSION: 1. Weakness with failure to thrive, multifactorial. 2. Gastric duodenal ulcers, possible achalasia on PPI therapy. 3. Status post valve replacement. 4. Permanent pacemaker placement with recent change. 5. Thrombocytopenia. 6. Mildly elevated bilirubin. PLAN: Continue to watch as far as diet. I told her that the tremor is probably from the citalopram. Again, we will increase the warfarin up to 6 mg with INR that is subtherapeutic this morning. CORNELIA DR: Daniele TID: [id number]
--- NOTE | 2020-07-23 19:08 | PATHOLOGY ---
[facility] Accession Number: [id number] . 01 Material submitted: . gastrointestinal site - GASTRIC ULCER BX . 01 Clinical history: . N/V EGD . 02 Diagnosis: Gastric biopsies, gastric ulcer: - Reactive gastropathy. See comment. (JPM:[place]anta; 07/23/2020) [facility] 07/23/2020 1634 Local . 02 Comment: Sections of the gastric ulcer biopsy reveal segments of gastric antral mucosa showing foveolar hyperplasia, congestion, edema, and slight chronic inflammation. A properly controlled immunoperoxidase stain for Helicobacter is negative for Helicobacter organisms. The findings are consistent with a reactive gastropathy. There is no evidence of malignancy. (JPM:fanta; 07/23/2020) . . Special stain performed: Immunoperoxidase stain for Helicobacter on A1 . 02 Electronically signed: . Richard Armendariz MD, Pathologist NPI- [id number] . 01 Gross description: . Received in formalin labeled "Alexia Wayne, gastric ulcer BX" are multiple boland-brown soft tissue fragments measuring in aggregate 0.8 x 0.2 x 0.1 cm. The specimen is submitted entirely in A1. ([facility]; 07/22/2020) [facility] 07/22/2020 1028 Local . 02 Pathologist provided ICD-10: K31.9 . 02 CPT . 932599, [id number] Specimen Comment: A courtesy copy of this report has been sent to [phone], [phone] Specimen Comment: [id number] Specimen Comment: Report sent to / DR COOL Performed at: [address], [place], [place] [id number] MD Christopher Castillo MD Phone: [phone] Performed at: [id number] [place], [place] [id number] MD Richard Armendariz MD Phone: [phone]
== END 2020-07-22 15:10 | disposition home or self-care (01) | DRG 384 ==
LOC: 4 NORTH 15:19
PROVIDERS: ADMIT Family Medicine; ATTEND Family Medicine
PROC: 0DB68ZX Excision of Stomach, Via Natural or Artificial Opening Endoscopic, Diagnostic (ICD-10-PCS; 2020-07-20)
PROC: 0DB98ZX Excision of Duodenum, Via Natural or Artificial Opening Endoscopic, Diagnostic (ICD-10-PCS; principal; 2020-07-20 10:00)
DX: K25.9 Gastric ulcer, unspecified as acute or chronic, without hemorrhage or perforation (principal); K22.0 Achalasia of cardia; K26.9 Duodenal ulcer, unspecified as acute or chronic, without hemorrhage or perforation; K31.89 Other diseases of stomach and duodenum; R13.10 Dysphagia, unspecified; D69.6 Thrombocytopenia, unspecified; E03.9 Hypothyroidism, unspecified; F32.9 Major depressive disorder, single episode, unspecified; F41.9 Anxiety disorder, unspecified; I11.0 Hypertensive heart disease with heart failure; I35.0 Nonrheumatic aortic (valve) stenosis; I48.91 Unspecified atrial fibrillation; I50.9 Heart failure, unspecified; R62.7 Adult failure to thrive; Z82.49 Family history of ischemic heart disease and other diseases of the circulatory system; Z95.0 Presence of cardiac pacemaker; Z95.2 Presence of prosthetic heart valve; Z88.0 Allergy status to penicillin; Z88.2 Allergy status to sulfonamides; R63.4 Abnormal weight loss; Z68.29 Body mass index [BMI] 29.0-29.9, adult; K22.8 Other specified diseases of esophagus
CPT/HCPCS: 36415; 43239; 74220; 80053; 81001; 82247; 82248; 83735; 84443; 85025; 85610; 88305; 88342; J2405; J2704; J3430; J7042; G0378

== ENCOUNTER 2020-10-11 10:55 | Emergency (ER) | payer MEDICARE, OTHER ==
[~2020-10-11] VITALS: Ht 166.4 cm; Wt 61.3 kg
[~2020-10-11 10:55] MED LIST changes: +CITA10TA4 PO; +FURO20TA3 PO; +METO50CA PO; +OMEP40CA7 PO; +OXYB5TAB10 PO; +POTA10TA PO
--- NOTE | 2020-10-11 11:55 | ED.ADGEN ---
Past Medical History Past Medical History: A-Fib, CAD, Other Additional Past Medical Histor: LUPUS ANTICOAGULANT, FAILURE TO THRIVE, RHEUMATIC FEVER Past Surgical History: Cholecystectomy, Pacemaker, Other Additional Past Surgical Histo: ARTIFICIAL VALVE X2, THYROID, COLON RESECTION FOR POLYPS Smoking Status: Never Smoker Alcohol Use: None Drug Use: None General Adult HPI: HPI: Patient is a 80-year-old female who arrives ambulatory to the emergency department complaining of left arm pain and swelling. Patient reports this has been problematic for her over the past 2 days. Patient has notable bruising of her upper arm as well. Patient states she was hospitalized previously for weakness and is unaware whether or not she may have had blood pressure checks on that right arm. Patient does states she takes anticoagulants and noted that her INR was above 6 at one time. She states that she is taking warfarin and today is her last day. The patient denies any trauma otherwise. She further denies any shortness of air or chest pain. Additionally she denies any fevers or rash. She is awake, alert and nontoxic-appearing. Review of Systems: Review of Systems: Constitutional: Denies fever or chills. [] Eyes: Denies change in visual acuity. [] HENT: Denies nasal congestion or sore throat. [] Respiratory: Denies cough or shortness of breath. [] Cardiovascular: Denies chest pain or edema. [] GI: Denies abdominal pain, nausea, vomiting, bloody stools or diarrhea. [] : Denies dysuria. [] Musculoskeletal: Reports right upper extremity pain and swelling. Denies back pain or joint pain. [] Integument: Ecchymosis of right upper extremity. Denies rash. [] Neurologic: Denies headache, focal weakness or sensory changes. [] Endocrine: Denies polyuria or polydipsia. [] Lymphatic: Denies swollen glands. [] Psychiatric: Denies depression or anxiety. [] Family History: Family History: Noncontributory Current Medications: Current Medications Medications (Trade) Dose Ordered Sig/Nisha Start Time Stop Time Status Last Admin Dose Admin Acetaminophen (Tylenol) 1,000 mg 1X ONCE 10/11/20 13:30 10/11/20 13:31 DC 10/11/20 13:38 1,000 MG Allergies: Allergies: Allergies Coded Allergies Type Severity Reaction Last Updated Verified Sulfa (Sulfonamide Antibiotics) Allergy Unknown hives 10/11/20 Yes Physical Exam: PE: Constitutional: Well developed, well nourished, no acute distress, non-toxic appearance. [] HENT: Normocephalic, atraumatic, bilateral external ears normal, oropharynx moist, no oral exudates, nose normal. [] Eyes: PERRLA, EOMI, conjunctiva normal, no discharge. [] Neck: Normal range of motion, no tenderness, supple, no stridor. [] Cardiovascular:Heart rate regular rhythm, no murmur [] Lungs & Thorax: Bilateral breath sounds clear to auscultation [] Abdomen: Bowel sounds normal, soft, no tenderness, no masses, no pulsatile masses. [] Skin: Warm, dry, no erythema, no rash. [] Back: No tenderness, no CVA tenderness. [] Extremities: Bruising of the right brachium is present with minimal soft tissue swelling. There is minimal tenderness at the site of bruising. There is no rash otherwise. [] Neurologic: Alert and oriented X 3, normal motor function, normal sensory function, no focal deficits noted. [] Psychologic: Affect normal, judgement normal, mood normal. [] Current Patient Data: Labs: Laboratory Tests Test 10/11/20 12:55 10/11/20 13:06 White Blood Count 6.0 x10^3/uL (4.0-11.0) Red Blood Count 3.02 x10^6/uL (3.50-5.40) L Hemoglobin 9.3 g/dL (12.0-15.5) L Hematocrit 27.9 % (36.0-47.0) L Mean Corpuscular Volume 92 fL (79-100) Mean Corpuscular Hemoglobin 31 pg (25-35) Mean Corpuscular Hemoglobin Concent 33 g/dL (31-37) Red Cell Distribution Width 21.0 % (11.5-14.5) H Platelet Count 114 x10^3/uL (140-400) L Neutrophils (%) (Auto) 70 % (31-73) Lymphocytes (%) (Auto) 12 % (24-48) L Monocytes (%) (Auto) 16 % (0-9) H Eosinophils (%) (Auto) 2 % (0-3) Basophils (%) (Auto) 0 % (0-3) Neutrophils # (Auto) 4.2 x10^3/uL (1.8-7.7) Lymphocytes # (Auto) 0.7 x10^3/uL (1.0-4.8) L Monocytes # (Auto) 1.0 x10^3/uL (0.0-1.1) Eosinophils # (Auto) 0.1 x10^3/uL (0.0-0.7) Basophils # (Auto) 0.0 x10^3/uL (0.0-0.2) Platelet Estimate Pending Prothrombin Time 25.3 SEC (11.7-14.0) H Prothrombin Time INR 2.3 (0.8-1.1) H Sodium Level 139 mmol/L (136-145) Potassium Level 4.6 mmol/L (3.5-5.1) Chloride Level 106 mmol/L (98-107) Carbon Dioxide Level 25 mmol/L (21-32) Anion Gap 8 (6-14) Blood Urea Nitrogen 34 mg/dL (7-20) H Creatinine 0.8 mg/dL (0.6-1.0) Estimated GFR (Cockcroft-Gault) 69.4 BUN/Creatinine Ratio 43 (6-20) H Glucose Level 128 mg/dL (70-99) H Calcium Level 9.0 mg/dL (8.5-10.1) Total Bilirubin 1.6 mg/dL (0.2-1.0) H Aspartate Amino Transferase (AST) 36 U/L (15-37) Alanine Aminotransferase (ALT) 31 U/L (14-59) Alkaline Phosphatase 268 U/L (46-116) H Troponin I Quantitative < 0.017 ng/mL (0.000-0.055) IU-Umw-L-Type Natriuretic Peptide 1527 pg/mL (0-449) H Total Protein 6.4 g/dL (6.4-8.2) Albumin 3.3 g/dL (3.4-5.0) L Albumin/Globulin Ratio 1.1 (1.0-1.7) Urine Collection Type Unknown Urine Color Angela Urine Clarity Clear Urine pH 6.0 (<5.0-8.0) Urine Specific Wagoner 1.025 (1.000-1.030) Urine Protein Negative mg/dL (NEG-TRACE) Urine Glucose (UA) Negative mg/dL (NEG) Urine Ketones (Stick) Negative mg/dL (NEG) Urine Blood Negative (NEG) Urine Nitrite Negative (NEG) Urine Bilirubin Small (NEG) Urine Urobilinogen Dipstick 2.0 mg/dL (0.2 mg/dL) Urine Leukocyte Esterase Trace (NEG) Urine RBC 1-2 /HPF (0-2) Urine WBC Occ /HPF (0-4) Urine Squamous Epithelial Cells Mod /LPF Urine Renal Epithelial Cells Few /LPF Urine Amorphous Sediment Present /HPF Urine Bacteria 0 /HPF (0-FEW) Urine Mucus Slight /LPF Laboratory Tests 10/11/20 12:55 Laboratory Tests 10/11/20 12:55 Vital Signs: Vital Signs Date Time Temp Pulse Resp B/P (MAP) Pulse Ox O2 Delivery O2 Flow Rate FiO2 10/11/20 14:18 70 130/61 (84) 96 Room Air 10/11/20 11:53 100.1 20 100.1 EKG: EKG: EKG was obtained at 1239 hrs. and revealed a normal sinus rhythm with a ventricular rate of 70 bpm. There is a prolonged MD interval with right axis deviation and a right bundle branch block. There are no acute ST/T wave changes to denote ischemia. Heart Score: C/O Chest Pain: No Risk Factors: Risk Factors: DM, Current or recent (<one month) smoker, HTN, HLP, family history of CAD, obesity. Risk Scores: Score 0 - 3: 2.5% MACE over next 6 weeks - Discharge Home Score 4 - 6: 20.3% MACE over next 6 weeks - Admit for Clinical Observation Score 7 - 10: 72.7% MACE over next 6 weeks - Early Invasive Strategies Radiology/Procedures: Radiology/Procedures: [] Impression: [facility] [address] [place] [address] IMAGING REPORT Signed PATIENT: EDIE SOMMER ACCOUNT: [id number] : 1940 LOCATION: ER AGE: 80 SEX: F EXAM STATUS: REG ER ORD. PHYSICIAN: ANTWON HARE DO REASON: pain/swelling PROCEDURE: VENOUS UPPER EXTREMITY RIGHT US DPLX VENOUS EXTREMITY UPPER RT History: Reason: pain/swelling / Spl. Instructions: / History: Comparison: None. Procedure: Color flow Doppler, Doppler spectral analysis, and 2D images are obtained with and without compression in the jugular vein, subclavian vein, axillary vein, brachial vein, radial vein, ulnar vein, and basilic and cephalic veins. Findings: Degraded evaluation of the brachial and axillary veins due to subcutaneous edema. No definite thrombosis. Remainder of the vessels are patent. Heterogeneous masslike lesion within the right medial upper arm measures 8.0 x 5.3 x 4.3 cm. No significant Doppler flow. IMPRESSION: 1. Heterogeneous masslike lesion within the right medial upper arm, may present hematoma. Recommend short-term ultrasound follow-up. 2. No definite deep vein thrombosis. Electronically signed by: Jamie Dhaliwal DO (10/11/2020 12:57 PM) [id number] DICTATED and SIGNED BY: JAMIE DHALIWAL DO DATE: 10/11/20 [id number] [facility] [address] [place] [address] IMAGING REPORT Signed PATIENT: EDIE SOMMER ACCOUNT: [id number] : 1940 LOCATION: ER AGE: 80 SEX: F EXAM STATUS: REG ER ORD. PHYSICIAN: ANTWON HARE DO REASON: Fever PROCEDURE: PORTABLE CHEST 1V XR CHEST 1V History: Reason: Fever / Spl. Instructions: / History: Comparison: September 03, 2020 Findings: Linear bibasilar opacities. Elevation the right hemidiaphragm. No pleural effusion. No pneumothorax. Enlarged cardiac size, unchanged. Stable left-sided pacemaker. Prior median sternotomy. Impression: 1. Mild linear bibasilar opacities, likely atelectasis or scarring. 2. Unchanged cardiomegaly. Electronically signed by: Jamie Dhaliwal DO (10/11/2020 12:55 PM) [id number] DICTATED and SIGNED BY: JAMIE DHALIWAL DO DATE: 10/11/20 [id number] Course & Med Decision Making: Course & Med Decision Making Pertinent Labs and Imaging studies reviewed. (See chart for details) The patient remains awake, alert and in no acute distress. Specifically she denies any chest pain or shortness of air. Patient has dropped her hemoglobin 3 g since her most recent hospital stay. I do suspect that may be related to having an elevated INR. The patient states that she has been off her Coumadin for 3 days now and remains anticoagulated. She is scheduled to start her Coumadin tomorrow. I did speak with her primary care physician who is scheduled to see her tomorrow. I did make him aware of her anemic status. Despite this, she denies any recent episodes of hemoptysis or any bloody stools. She further denies any history of abdominal pain. I advised that she return with any new shortness of air or chest pain. I have also advised that she return with any developing weakness. The patient understands and has agreed to return as needed. She is nontoxic-appearing and neurologically intact. She is stable for discharge. Wilfridon Disclaimer: Helen Disclaimer: This electronic medical record was generated, in whole or in part, using a voice recognition dictation system. Departure Departure Impression: Primary Impression: Traumatic hematoma of right upper arm Additional Impressions: Anemia Acute prerenal azotemia Thrombocytopenia Disposition: 01 HOME / SELF CARE / HOMELESS Condition: STABLE Referrals: GLEN COOL MD (PCP) Patient Instructions: Anemia, Nonspecific-Brief, Hematoma Problem Qualifiers ANTWON HARE DO Oct 11, 2020 11:55
--- NOTE | 2020-10-11 12:58 | RAD ---
XR CHEST 1V History: Reason: Fever / Spl. Instructions: / History: Comparison: September 03, 2020 Findings: Linear bibasilar opacities. Elevation the right hemidiaphragm. No pleural effusion. No pneumothorax. Enlarged cardiac size, unchanged. Stable left-sided pacemaker. Prior median sternotomy. Impression: 1. Mild linear bibasilar opacities, likely atelectasis or scarring. 2. Unchanged cardiomegaly. Electronically signed by: Jamie Dhaliwal DO (10/11/2020 12:55 PM) [id number]
--- NOTE | 2020-10-11 13:00 | RAD ---
US DPLX VENOUS EXTREMITY UPPER RT History: Reason: pain/swelling / Spl. Instructions: / History: Comparison: None. Procedure: Color flow Doppler, Doppler spectral analysis, and 2D images are obtained with and without compression in the jugular vein, subclavian vein, axillary vein, brachial vein, radial vein, ulnar v ein, and basilic and cephalic veins. Findings: Degraded evaluation of the brachial and axillary veins due to subcutaneous edema. No definite thrombo sis. Remainder of the vessels are patent. Heterogeneous masslike lesion within the right medial upper arm measures 8.0 x 5.3 x 4.3 cm. No signi ficant Doppler flow. IMPRESSION: 1. Heterogeneous masslike lesion within the right medial upper arm, may present hematoma. Recommend short-term ultrasound follow-up. 2. No definite deep vein thrombosis. Electronically signed by: Jamie Dhaliwal DO (10/11/2020 12:57 PM) [id number]
[2020-10-11 13:11] LABS: BASO % 0 % (0-3); EOS # 0.1 x10^3/uL (0.0-0.7); EOS % 2 % (0-3); HEMATOCRIT 27.9 % (36.0-47.0); HEMOGLOBIN 9.3 g/dL (12.0-15.5); LYMPH # 0.7 x10^3/uL (1.0-4.8); LYMPH % 12 % (24-48); MEAN CORPUSCULAR HEMOGLOBIN 31 pg (25-35); MEAN CORPUSCULAR HGB CONC 33 g/dL (31-37); MEAN CORPUSCULAR VOLUME 92 fL (79-100); MONO % 16 % (0-9); NEUT # 4.2 x10^3/uL (1.8-7.7); NEUT % 70 % (31-73); PLATELET COUNT 114 x10^3/uL (140-400); RED BLOOD COUNT 3.02 x10^6/uL (3.50-5.40)
[2020-10-11 13:15] LABS: BILIRUBIN,URINE SMALL (NEG); CLARITY,URINE CLEAR; COLOR,URINE AMBER; NITRITE,URINE NEGATIVE (NEG); PROTEIN,URINE NEGATIVE (NEG-TRACE)
[2020-10-11 13:19] LABS: PROTHROMBIN TIME PATIENT 25.3 SEC (11.7-14.0)
[2020-10-11 13:22] LABS: CREATININE 0.8 mg/dL (0.6-1.0); GFR 69.4; POTASSIUM 4.6 mmol/L (3.5-5.1)
[2020-10-11] MEDS ORDERED: ACETAMINOPHEN 500 MG TABLET PO ONE (13:30)
[2020-10-11 13:32] LABS: ALBUMIN 3.3 g/dL (3.4-5.0); ALBUMIN/GLOBULIN RATIO 1.1 (1.0-1.7); TOTAL BILIRUBIN 1.6 mg/dL (0.2-1.0); TOTAL PROTEIN 6.4 g/dL (6.4-8.2)
[2020-10-11 13:35] LABS: AMORPHOUS SEDIMENT,UR PRESENT /HPF; BACTERIA,URINE 0 /HPF (0-FEW); WBC,URINE OCC /HPF (0-4)
[2020-10-11 14:48] VITALS: BP 139/64
[2020-10-11 15:43] LABS: PLT ESTIMATE DECREASED (ADEQUATE)
[2020-10-11 15:44] LABS: ANISOCYTOSIS MOD; OVALOCYTES FEW
--- NOTE | 2020-10-12 15:44 | NUR ---
IP: Attempted to contact pt concerning covid results. No answer, left a voicemail to return the call.
--- NOTE | 2020-10-15 11:21 | NUR ---
IP: Pt returned my call. I informed her of the negative covid test. Pt verbalized understanding.
--- NOTE | 2020-10-18 09:01 | EKG ---
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
[2020-11-14] MEDS ORDERED: LOSA-73 PO (13:20)
[2020-11-14] MEDS ORDERED: MULT-245 PO (13:32)
[2020-11-14] MEDS ORDERED: OXYC1TAB15 PO (13:32)
[2020-11-14] MEDS ORDERED: CYCL1DRO EACHEYE (13:32)
[2020-11-14] MEDS ORDERED: TRAM50TA PO (13:32)
[2020-11-14] MEDS ORDERED: MELA2.5T PO (13:32)
[2020-11-14] MEDS ORDERED: CHOL10004 PO (13:32)
[2020-11-14] MEDS ORDERED: ACET325C6 PO (13:32)
[2020-11-14] MEDS ORDERED: GABA300C18 PO (13:32)
== END 2020-10-11 15:09 | disposition home or self-care (01) ==
LOC: ER 11:53
DX: S40.021A Contusion of right upper arm, initial encounter (principal); D64.9 Anemia, unspecified; R79.89 Other specified abnormal findings of blood chemistry; D69.6 Thrombocytopenia, unspecified; I48.91 Unspecified atrial fibrillation; I25.10 Atherosclerotic heart disease of native coronary artery without angina pectoris; Z20.822 Contact with and (suspected) exposure to COVID-19; Z95.0 Presence of cardiac pacemaker; Z88.2 Allergy status to sulfonamides; X58.XXXA Exposure to other specified factors, initial encounter; Y93.89 Activity, other specified; Y92.89 Other specified places as the place of occurrence of the external cause; Y99.8 Other external cause status
CPT/HCPCS: 36415; 71045; 80053; 81001; 83880; 84484; 85025; 85610; 87086; 93005; 93971; 99285; U0003; U0005

== ENCOUNTER → 2020-11-14 | Outpatient (CLI) | payer MEDICARE, OTHER ==
[~2020-11-14] MED LIST changes: +ACET325C6 PO; +CHOL10004 PO; +CYCL1DRO EACHEYE; +GABA300C18 PO; +MELA2.5T PO; +MULT-245 PO; +TRAM50TA PO
--- NOTE | 2020-11-14 14:04 | PDOC1 ---
INITIAL PAIN CONSULT DATE OF SERVICE: DOS: DATE: 11/14/20 TIME: 13:55 CHIEF COMPLAINT: Chief Complaint: Right elbow and forearm pain HISTORY OF PRESENT ILLNESS: 80-year-old female presents with history of pain after fall October 23, 2020. She missed the last stair on her staircase and fell landing on her head and her right arm she believes she put her arm out to her side and fell on it with her elbow but is unsure patient reports that pain significant at the time and is still significant she has significant bruising from the elbow to the forearm and into the hand on the medial aspect patient also had bruising in the upper arm medially as well patient was checked out the emergency department without any fractures noted with the wrist hand forearm elbow and upper arm and shoulder with significant bruising as patient is on Coumadin. Patient reports the pain is significant now it is a burning aching tingling pain in the elbow and the right hand to the fingers the fourth and fifth on the right hand as well. Patient describes it as constant with numbness and tingling and aching as well worse with repetitive motions twisting of the hand with pronation supination w ith any weightbearing such as opening a jar, or turning things with a spatula. Patient reports it generally does not awaken her from sleep at night she been taking oxycodone as well as Tylenol neither of which helped significantly she had Doppler studies performed showing no clots in the upper and forearm as well just 3 days ago. Patient is on gabapentin which she reports is not making any difference and is taking 300 mg twice daily. Patient rates her disability rating 0-10 10 me the worst is a 9 with family responsibilities and recreation time social activity 3 with occupation to with self-care and 1 with life support activities. Patient has tried tramadol which was not helpful as well. Patient reports no loss of motor function but significant pain and tingling limiting her use of the right hand and she is right hand dominant. PAST MEDICAL HISTORY: PMH: Arthritis, dizziness, cardiomyopathy, TIAs PREVIOUS SURGERIES: Past Surgical Hx: Chronic MRI #26, right colon resection 2019, tonsillectomy, tubal ligation, cholecystectomy, thyroidectomy CURRENT MEDICATIONS: Current Meds: Active Scripts Medications Dose Route/Sig Max Daily Dose Days Date Category Dose Instructions Vitamin D3 (Vitamin D) 25 Mcg Tablet 25 Mcg PO DAILY 11/14/20 Reported 1,000 UNITS = 25 MCG Multi Vitamin Daily (Multivitamin) 1 Each Tablet 1 Tab PO DAILY 30 11/14/20 Reported Tylenol (Acetaminophen) 325 Mg Capsule 325 Mg PO Q6-8HRS 11/14/20 Reported Restasis (Cyclosporine) 1 Each Droperette 1 Drop EACHEYE BID 11/14/20 Reported Melatonin 2.5 Mg Tab.chew 1 Tab PO QHS 30 11/14/20 Reported Tramadol Hcl 50 Mg Tablet 50 Mg PO Q6HRS PRN 11/14/20 Reported Percocet 5-325 Mg Tablet (Oxycodone/Acetaminophen) 1 Each Tablet 1 Tab PO PRN Q6HRS PRN 11/14/20 Reported Gabapentin (Gabapentin) 300 Mg Capsule 300 Mg PO BID 11/14/20 Reported Losartan Potassium 50 Mg Tablet 50 Mg PO DAILY 11/14/20 Reported Kapspargo Sprinkle (Metoprolol Succinate) 50 Mg Cap.spr.24 50 Mg PO DAILY 09/03/20 Reported Oxybutynin Chloride 5 Mg Tablet 1 Tab PO BID 09/03/20 Reported Warfarin Sodium 5 Mg Tablet 5 Mg PO DAILY 09/03/20 Reported Omeprazole 40 Mg Capsule.dr 1 Cap PO DAILY 09/03/20 Reported Citalopram Hbr (Citalopram Hydrobromide) 10 Mg Tablet 1 Tab PO DAILY 09/03/20 Reported Furosemide 20 Mg Tablet 1 Tab PO DAILY 09/03/20 Reported Levothyroxine Sodium 137 Mcg Tablet 1 Tab PO DAILY 06/18/17 Reported Zebutal 50-325-40 Mg Capsule (Butalb/Acetaminophen/Caffeine) 1 Each Capsule 1 Each PO PRN Q6HRS PRN 09/11/15 Reported Zolpidem Tartrate 10 Mg Tablet 0.5 Tab PO QHS 05/26/13 Reported Alprazolam 0.25 Mg Tab.rapdis 0.25 Mg PO PRN BID PRN 05/26/13 Reported ALLERGIES; Allergies: Coded Allergies: Sulfa (Sulfonamide Antibiotics) (Verified Allergy, Unknown, hives, 10/11/20) FAMILY HISTORY: Family Hx: Heart disease and cancers SOCIAL HISTORY: Social Hx: Patient is under alcohol does not smoke not use any illegal illicit or recreational drugs is lives with her spouse lives locally in [facility] and is currently retired. REVIEW OF SYSTEMS: ROS: Positive for those items mentioned in history of present illness, all systems are reviewed, otherwise negative ,and are complete full and well-documented on patient's chart. PHYSICAL EXAM: VS: Blood pressure is 135/69 pulse 71 respirations 16 temperature 98.2 F height is 5 foot 5-1/2 inches weight is 130 pounds PE: PHYSICAL EXAMINATION: GENERAL: The patient is awake, alert, oriented, appropriate, very pleasant in demeanor, patient accompanied by her HEENT: Shows normocephalic, atraumatic. Extraocular movements are intact and symmetrical. Oral cavity: Mucous membranes moist and pink. NECK: Shows anterior throat supple without palpable lymphadenopathy noted. Swal low reflex symmetrical. CHEST: Shows normal on inspection. Breath sounds are clear bilaterally, no rales rhonchi or wheeze auscultated. HEART: Shows S1, S2 clear. No murmurs auscultated. ABDOMEN: Soft, nontender, nondistended. No palpable organomegaly is noted. No rebound or guarding demonstrated. BACK: Shows spine grossly in the midline. Normal-appearing cervical lordotic curvature. Cervical paraspinous muscles show symmetrical inspection, palpation some mild tenderness more diffusely in the inferior aspect the paraspinous musculature into the superior medial trapezius. Patient shows full rotation motion cervical spine both laterally as well as extension and flexion without significant difficulty or pain reported. There is slightly increased thoracic kyphosis, some minor flattening of the lumbar lordotic curvature. EXTREMITIES: Upper extremities show deep tendon reflexes 2+ in the biceps and triceps tendons. Motor exam is 5 on a scale of 5 with right paper cup machine tender, biceps and triceps flexion and 5/5 on the left. Peripheral pulses are 2+ radial. No peripheral edema is noted bilaterally. Upper extremities are warm and dry to touch. Patient's right arm has still residual bruising on the medial aspect from the elbow to the hand even some in the fingers and the fourth and fifth fingers patient has some decreased sharp dull discrimination in the fourth and fifth fingers on the palmar side only but not posteriorly. With palpation over the medial epicondyle has significant tenderness with some radiation into the ulnar distribution on the arm as well. SKIN: Shows warm and dry, good turgor. No edema. No sores, or rashes throughout. IMPRESSION: Impression: 80-year-old female with recent fall October 23, 2020 with contusion to the r ight elbow and forearm with significant bruising and now with resolution of bruise significant irritation of the ulnar nerve on the right side. Arthritis Cardiomyopathy Anticoagulation therapy Plan: Options were discussed with patient patient is spouse who accompanied her to visit today. We will try Medrol Dosepak to see if we get some inflammatory response moved from the ulnar nerve and the right medial epicondyle. Also discussed increasing patient's gabapentin to 3 times daily instead of twice daily. Patient will try the Medrol Dosepak if not significantly improved or if improved and pain returns we did discuss potential interventional techniques such as a medial epicondylar injection on the right. Patient will follow up after Medrol Dosepak is completed. DALE MONSALVE MD Nov 14, 2020 14:04
== END | disposition home or self-care (01) ==
LOC: PNCL 12:53
PROVIDERS: ATTEND Anesthesiology
DX: M25.521 Pain in right elbow (principal); M19.90 Unspecified osteoarthritis, unspecified site; I42.9 Cardiomyopathy, unspecified; I11.0 Hypertensive heart disease with heart failure; I50.9 Heart failure, unspecified; I48.91 Unspecified atrial fibrillation; F41.9 Anxiety disorder, unspecified; F32.9 Major depressive disorder, single episode, unspecified; E03.9 Hypothyroidism, unspecified; Z98.51 Tubal ligation status; Z90.49 Acquired absence of other specified parts of digestive tract; Z98.890 Other specified postprocedural states; Z79.01 Long term (current) use of anticoagulants; Z79.899 Other long term (current) drug therapy; Z88.2 Allergy status to sulfonamides; Z86.73 Personal history of transient ischemic attack (TIA), and cerebral infarction without residual deficits; Z82.49 Family history of ischemic heart disease and other diseases of the circulatory system
CPT/HCPCS: G0463

== ENCOUNTER → 2020-12-26 | Outpatient (CLI) | payer MEDICARE, OTHER ==
[~2020-12-26] MED LIST changes: +BUPIVACAINE MPF 0.25% 10 ML VIAL. ONE; -CITA10TA4 PO; +CITA10TA5 PO; +methylPREDNISolone ACETATE 80 MG/ML VIAL. ONE
--- NOTE | 2020-12-26 08:49 | PDOC ---
Progress Note - Pain Clinic Date of Service: DOS: DATE: 12/26/20 TIME: 08:45 Diagnosis: Dx: Right medial epicondylitis History or Present Illness: HPI: 80-year-old female with the pain in the right elbow radiating to the right forearm and hand medial aspect into the little finger status post Medrol Dosepak without significant reduction in pain except for the first 1 to 2 days patient reports pain is significant in the right elbow worse with repetitive motions or reaching twisting bending the right arm reaching overhead as well as repetitive motions with the hand squeezing motions and any twisting or flexion extension of the elbow patient reports is waking her from sleep at night fairly frequently patient reports is a 9 on scale 10 at all times worst least and average is a 9 today patient describes it as severe burning sharp radiating into the hand and arm. Patient reports that tramadol helps only minimally is very excruciating by the evening in the right elbow and arm. Patient reports no loss of motor function with significant disability of the right hand and arm because of the pain. Physical Exam: VS: Blood pressure is 125/59 pulse 75 respirations 18 temperature 97.9 F height is 5 feet 5 inches weight is 128 pounds PE: PHYSICAL EXAMINATION: GENERAL: The patient is awake, alert, oriented, appropriate, very pleasant in demeanor, patient accompanied by her . HEENT: Shows normocephalic, atraumatic. Extraocular movements are intact and symmetrical. Oral cavity: Mucous membranes moist and pink. NECK: Shows anterior throat supple without palpable lymphadenopathy noted. Swallow reflex symmetrical. CHEST: Shows normal on inspection. Breath sounds are clear bilaterally. HEART: Shows S1, S2 clear. No murmurs auscultated. ABDOMEN: Soft, nontender, nondistended. No palpable organomegaly is noted. BACK: Shows spine grossly in the midline. Normal-appearing cervical lordotic curvature. There is slightly increased thoracic kyphosis, some minor flattening of the lumbar lordotic curvature. EXTREMITIES: Upper extremities show deep tendon reflexes 2+ in the biceps and triceps tendons. Motor exam is 5 on a scale of 5 with right cafeteria or lunchroom checker, biceps and triceps flexion and 5/5 on the left. Peripheral pulses are 2+ radial. No pe ripheral edema is noted bilaterally. Patient shows good rotation of motion of both elbows. Patient has significant tenderness over the right medial epicondyle with direct palpation at the articular surface of the superior aspect of the joint with some radiation as well into the medial forearm and hand with palpation. Left side is nontender with good rotation of motion. Upper ex tremities are warm and dry to touch, equal in color and appearance. SKIN: Shows warm and dry, good turgor. No edema. No sores, rashes or bruising throughout. Procedure: Procedure: Options were discussed with the patient patient spouse who accompanied her to visit today. We will proceed with a right epicondylar joint injection. Risk were discussed including but not limited to bleeding flexion possibility of intravascular injection sequelae spread local anesthetic and numbness side effects steroid medication portals regarding pain control. Patient understands wished to proceed. Patient will return to clinic in approximately 2 weeks for follow-up as scheduled. Medication Injected: Med Injected: Under sterile prep and drape patient sitting position patient's right elbow was examined and sterilely prepped and draped in usual fashion. Right superior aspect the epicondylar joint was then injected using 25-gauge needle after negative aspiration for total of 2 cc 0.25% ropivacaine and 80 mg Depo-Medrol. Patient tolerated the procedure well and had no complications. Condition at Discharge: Condition at Discharge: Condition at discharge stable, patient tolerated the procedure well and had no complications. DALE MONSALVE MD Dec 26, 2020 08:49
--- NOTE | 2020-12-26 08:50 | PDOC4 ---
Procedure Note: ICD 10 Code: ICD 10 Code: M77.01 Procedure Note: Patient was consented for right epicondylar joint injection. Risks are discussed including but not limited to bleeding infection possibility of intravascular injection sequelae spread of local anesthetic numbness side effects steroid medication, and poor results regarding pain control. Patient understands wished to proceed. Under sterile prep and drape patient sitting position patient's right elbow was examined and sterilely prepped and draped in usual fashion. Right superior aspect the epicondylar joint was then injected using 25-gauge needle after negative aspiration for total of 2 cc 0.25% ropivacaine and 80 mg Depo-Medrol. Patient tolerated the procedure well and had no complications. DALE MONSALVE MD Dec 26, 2020 08:50
== END | disposition home or self-care (01) ==
LOC: PNCL 07:43
PROVIDERS: ATTEND Anesthesiology
DX: M77.01 Medial epicondylitis, right elbow (principal); I11.0 Hypertensive heart disease with heart failure; I50.9 Heart failure, unspecified; I48.91 Unspecified atrial fibrillation; E03.9 Hypothyroidism, unspecified; F41.9 Anxiety disorder, unspecified; F32.9 Major depressive disorder, single episode, unspecified; Z90.49 Acquired absence of other specified parts of digestive tract; Z98.51 Tubal ligation status; Z98.890 Other specified postprocedural states; Z79.899 Other long term (current) drug therapy; Z79.84 Long term (current) use of oral hypoglycemic drugs; Z88.2 Allergy status to sulfonamides
CPT/HCPCS: 20605; J1040; J3490

== ENCOUNTER → 2021-01-22 | Outpatient (CLI) | payer MEDICARE, OTHER ==
[~2021-01-22] MED LIST changes: +methylPREDNISolone ACETATE 40 MG/ML VIAL. ONE; -methylPREDNISolone ACETATE 80 MG/ML VIAL. ONE
--- NOTE | 2021-01-22 08:55 | PDOC ---
Progress Note - Pain Clinic Date of Service: DOS: DATE: 01/22/21 TIME: 08:51 Diagnosis: Dx: Right medial epicondylitis Right ulnar nerve entrapment History or Present Illness: HPI: 80-year-old female returns for follow-up status post right medial epicondylar joint injection with only minimal decrease in pain after the injection patient reports it felt better for a few hours after the injection but the pain returned and is radiating into the right hand and little finger as well as into the lateral aspect of the palm which becomes severe especially at night patient reports it is worse with repetitive motions or any activity bending moving the elbow very tender in the elbow itself on the medial aspect as well with radiating pain into the right hand and medial aspect back of the hand and fourth and fifth fingers patient reports it becomes constant in the evening tingling and burning sharp at all times patient reports is a 9 on scale 10 is worst 8 on average 8 its least is an 8 today patient reports she still taking gabapentin 30 0 mg twice a day which is not decreasing the pain whatsoever. Patient reports no new motor or sensory deficits. Physical Exam: VS: Blood pressure is 146/73 pulse 73 respirations 16 temperature 97.5 F height 5 feet 5 inches weight is 125 pounds PE: PHYSICAL EXAMINATION: GENERAL: The patient is awake, alert, oriented, appropriate, very pleasant in demeanor patient accompanied by her spouse HEENT: Shows normocephalic, atraumatic. Extraocular movements are intact and symmetrical. Oral cavity: Mucous membranes moist and pink. NECK: Shows anterior throat supple without palpable lymphadenopathy noted. Swallow reflex symmetrical. CHEST: Shows normal on inspection. Breath sounds are clear bilaterally. HEART: Shows S1, S2 clear. No murmurs auscultated. ABDOMEN: Soft, nontender, nondistended. No palpable organomegaly is noted. BACK: Shows spine grossly in the midline. Normal-appearing cervical lordotic curvature. There is slightly increased thoracic kyphosis, some minor flattening of the lumbar lordotic curvature. EXTREMITIES: Upper extremities show deep tendon reflexes 2+ in the biceps and triceps tendons. Motor exam is 5 on a scale of 5 with right neon glass blower, biceps and triceps flexion and 5/5 on the left. Peripheral pulses are 2+ radial. No peripheral edema is noted bilaterally. Right elbow shows significant tenderness over the medial epicondyle with palpation also with range of motion with minor radiation with palpation to the right medial aspect of the forearm and hand. Left side is nontender. Upper extremities are warm and dry to touch, equal in color and appearance. SKIN: Shows warm and dry, good turgor. No edema. No sores, rashes or bruising throughout. Procedure: Procedure: Options were discussed with patient. Patient chart was reviewed as her current medication regimen updated current review of systems updated today as well. We will proceed with a right medial epicondylar joint injection. Risks were discussed including but not limited to bleeding infection possibility of intravascular injection sequelae spread of local anesthetic and numbness side effects steroid medication portals rating pain control. Patient understands wished to proceed. Patient return to clinic in approximately 1 week for follow- up, we did discuss if not significantly improved will make neurology referral for EMG testing right ulnar nerve Medication Injected: Med Injected: Under sterile prep and drape patient's right epicondyle was injected using 25- gauge needle after negative aspiration for total of 2 cc 0.25% Vivacaine and 80 mg Depo-Medrol was injected. Needle was removed and sterile bandage was applied. Patient tolerated procedure well and had no complications. Condition at Discharge: Condition at Discharge: Condition at discharge stable, patient tolerated procedure well and had no complications. DALE MONSALVE MD Jan 22, 2021 08:55
--- NOTE | 2021-01-22 08:56 | PDOC4 ---
Procedure Note: ICD 10 Code: ICD 10 Code: M 77.01 Procedure Note: Patient was consented for right medial epicondylar joint injection. Risk were discussed including but not limited to bleeding infection possibility of intravascular injection sequelae spread local anesthetic numbness side effects steroid medication portals right pain control. Patient understands wished to proceed. Under sterile prep and drape patient's right epicondyle was injected using 25- gauge needle after negative aspiration for total of 2 cc 0.25% Vivacaine and 80 mg Depo-Medrol was injected. Needle was removed and sterile bandage was applied. Patient tolerated procedure well and had no complications. DALE MONSALVE MD Jan 22, 2021 08:56
== END | disposition home or self-care (01) ==
LOC: PNCL 08:12
PROVIDERS: ATTEND Anesthesiology
DX: M77.01 Medial epicondylitis, right elbow (principal); G56.21 Lesion of ulnar nerve, right upper limb; I11.0 Hypertensive heart disease with heart failure; I50.9 Heart failure, unspecified; I48.91 Unspecified atrial fibrillation; E78.00 Pure hypercholesterolemia, unspecified; E03.9 Hypothyroidism, unspecified; F41.9 Anxiety disorder, unspecified; F32.9 Major depressive disorder, single episode, unspecified; Z86.73 Personal history of transient ischemic attack (TIA), and cerebral infarction without residual deficits; Z98.51 Tubal ligation status; Z90.49 Acquired absence of other specified parts of digestive tract; Z98.890 Other specified postprocedural states; Z79.899 Other long term (current) drug therapy; Z88.2 Allergy status to sulfonamides; Z82.49 Family history of ischemic heart disease and other diseases of the circulatory system
CPT/HCPCS: 20605; J1030; J3490

== ENCOUNTER → 2021-05-28 | Outpatient (CLI) | payer MEDICARE, OTHER ==
[~2021-05-28] MED LIST changes: -BUPIVACAINE MPF 0.25% 10 ML VIAL. ONE; -methylPREDNISolone ACETATE 40 MG/ML VIAL. ONE
[2021-05-28 12:54] LABS: BASO % 1 % (0-3); EOS # 0.1 x10^3/uL (0.0-0.7); EOS % 3 % (0-3); HEMATOCRIT 29.1 % (36.0-47.0); LYMPH # 0.8 x10^3/uL (1.0-4.8); LYMPH % 21 % (24-48); MEAN CORPUSCULAR HEMOGLOBIN 24 pg (25-35); MEAN CORPUSCULAR HGB CONC 31 g/dL (31-37); MEAN CORPUSCULAR VOLUME 76 fL (79-100); MONO # 0.6 x10^3/uL (0.0-1.1); MONO % 17 % (0-9); NEUT # 2.1 x10^3/uL (1.8-7.7); NEUT % 58 % (31-73); PLATELET COUNT 109 x10^3/uL (140-400); RED BLOOD COUNT 3.82 x10^6/uL (3.50-5.40); RED CELL DISTRIBUTION WIDTH 18.5 % (11.5-14.5); WHITE BLOOD COUNT 3.7 x10^3/uL (4.0-11.0)
[2021-06-01 15:11] LABS: LDH1 32 % (17-32); LDH2 36 % (25-40); LDH3 17 % (17-27); LDH4 9 % (5-13); LDH5 6 % (4-20)
== END ==
LOC: ONCLAB 11:01
PROVIDERS: ATTEND Internal Medicine Hematology & Oncology
DX: D50.0 Iron deficiency anemia secondary to blood loss (chronic) (principal)
CPT/HCPCS: 36415; 82607; 82728; 82746; 83010; 83540; 83550; 83615; 83625; 85025

== ENCOUNTER → 2021-07-03 | Outpatient (CLI) | payer MEDICARE, OTHER ==
[2021-07-03 11:46] LABS: BASO # 0.1 x10^3/uL (0.0-0.2); BASO % 1 % (0-3); EOS # 0.1 x10^3/uL (0.0-0.7); EOS % 4 % (0-3); HEMATOCRIT 37.6 % (36.0-47.0); HEMOGLOBIN 12.2 g/dL (12.0-15.5); LYMPH # 0.9 x10^3/uL (1.0-4.8); LYMPH % 23 % (24-48); MEAN CORPUSCULAR HEMOGLOBIN 28 pg (25-35); MEAN CORPUSCULAR HGB CONC 32 g/dL (31-37); MEAN CORPUSCULAR VOLUME 87 fL (79-100); MONO # 0.6 x10^3/uL (0.0-1.1); MONO % 16 % (0-9); NEUT # 2.2 x10^3/uL (1.8-7.7); NEUT % 56 % (31-73); PLATELET COUNT 82 x10^3/uL (140-400); RED BLOOD COUNT 4.34 x10^6/uL (3.50-5.40); RED CELL DISTRIBUTION WIDTH 29.8 % (11.5-14.5)
[2021-07-03 11:54] LABS: CALCIUM 9.1 mg/dL (8.5-10.1); CREATININE 0.8 mg/dL (0.6-1.0); GFR 69.4; POTASSIUM 4.6 mmol/L (3.5-5.1)
[2021-07-03 12:14] LABS: PLT ESTIMATE DECREASED (ADEQUATE)
[2021-07-03 12:15] LABS: ANISOCYTOSIS MOD; OVALOCYTES OCC
== END ==
LOC: ONCLAB 11:00
PROVIDERS: ATTEND Physician Assistant
DX: D69.3 Immune thrombocytopenic purpura (principal)
CPT/HCPCS: 36415; 80048; 82728; 83540; 83550; 85025

== ENCOUNTER → 2021-07-12 | Day surgery (SDC) | payer MEDICARE, OTHER ==
[~2021-07-12] VITALS: Ht 165.1 cm; Wt 63.0 kg
[~2021-07-12] MED LIST changes: +IV RINGERS,LACTATED 1000ML 1,000 ML IV SCH; +PROPOFOL 10 MG/ML (20ML) VIAL. IV ONE
[2021-07-12 08:09] VITALS: BP 205/93
--- NOTE | 2021-07-12 08:44 | PDOC2 ---
CONSULT Date of Consult Date of Consult DATE: 07/12/21 TIME: 08:39 Reason for Consult Reason for Consult: hx polyps/diarrhea History of Present Illness Reason for Visit: 80 year old female is seen iwith above. She has continued issues with diarrhea s/p partial colectomy for sessile polyp. Weight and appetite are stable. No bleeding is noted. No travel, antibiotics, and/or recent travel is noted. With the continuied issues, she requests further evaluation. Past Medical History Cardiovascular: AFIB, CHF, HTN, Valve insufficiency Pulmonary: Pulmonary embolus CENTRAL NERVOUS SYSTEM: TIA Heme/Onc: Other Psych: Anxiety, Depression Endocrine: Hypothyroidism Past Surgical History Past Surgical History: Appendectomy, Cholecystectomy, Tubal Ligation, Other Family History Family History: No Significant, Other Social History ALCOHOL: none Drugs: None Lives: with Family Current Medications Current Medications Current Medications Ringer's Solution 1,000 ml @ 100 mls/hr Q10H IV Last administered on 07/12/21at 08:14; Start 07/12/21 at 08:15; Stop 07/13/21 at 08:14 Active Scripts Active Reported Vitamin D3 (Vitamin D) 25 Mcg Tablet 25 Mcg PO DAILY 1,000 UNITS = 25 MCG Multi Vitamin Daily (Multivitamin) 1 Each Tablet 1 Tab PO DAILY 30 Days Tylenol (Acetaminophen) 325 Mg Capsule 325 Mg PO Q6-8HRS Restasis (Cyclosporine) 1 Each Droperette 1 Drop EACHEYE BID Melatonin 2.5 Mg Tab.chew 1 Tab PO QHS 30 Days Tramadol Hcl 50 Mg Tablet 50 Mg PO Q6HRS PRN Percocet 5-325 Mg Tablet (Oxycodone/Acetaminophen) 1 Each Tablet 1 Tab PO PRN Q6HRS PRN Gabapentin (Gabapentin) 300 Mg Capsule 300 Mg PO BID Losartan Potassium 50 Mg Tablet 50 Mg PO DAILY Kapspargo Sprinkle (Metoprolol Succinate) 50 Mg Cap.spr.24 50 Mg PO DAILY Oxybutynin Chloride 5 Mg Tablet 1 Tab PO BID Warfarin Sodium 5 Mg Tablet 5 Mg PO DAILY Omeprazole 40 Mg Capsule.dr 1 Cap PO DAILY Citalopram Hbr (Citalopram Hydrobromide) 10 Mg Tablet 1 Tab PO DAILY Furosemide 20 Mg Tablet 1 Tab PO DAILY Levothyroxine Sodium 137 Mcg Tablet 1 Tab PO DAILY Zebutal 50-325-40 Mg Capsule (Butalb/Acetaminophen/Caffeine) 1 Each Capsule 1 Each PO PRN Q6HRS PRN Zolpidem Tartrate 10 Mg Tablet 0.5 Tab PO QHS Alprazolam 0.25 Mg Tab.rapdis 0.25 Mg PO PRN BID PRN Allergies Allergies: Coded Allergies: Sulfa (Sulfonamide Antibiotics) (Verified Allergy, Unknown, hives, 07/12/21) ROS Gastrointestinal: Yes Diarrhea Physical Exam General: Alert, Oriented X3 Lungs: Clear to auscultation Heart: Normal S1, Normal S2, Other (III/ ALMA DELIA AVR/MVR) Abdomen: Normal bowel sounds, Soft, No tenderness Vitals VITALS Vital Signs Date Time Temp Pulse Resp B/P (MAP) Pulse Ox O2 Delivery O2 Flow Rate FiO2 07/12/21 08:09 97.7 74 17 97 97.7 Assessment/Plan Assessment/Plan Diarrhea- s/p partial colectomy, etiology to be determined. COlonoscpoy to aleida abdalla assess. Endoclips for polypectomies as she is on anticoagulation for her prosthetic heart valves. BOB BYRD MD July 12, 2021 08:44
[2021-07-12 09:13] VITALS: BP 155/72
--- NOTE | 2021-07-16 17:07 | PATHOLOGY ---
[facility] Accession Number: [id number] . 01 Material submitted: . colon - RANDOM COLON BX . 01 Clinical history: . DIARRHEA, HX COLON POLYPS, S/P COLON . 02 Diagnosis: Colonic mucosa, random colon biopsies: - No diagnostic abnormalities. (JPM:chelsie; 07/16/2021) [facility] 07/16/2021 1424 Local . 02 Comment: Sections of the random colon biopsy reveal multiple segments of colonic mucosa. There are several, focally hyperplastic mucosal-associated lymphoid aggregates. There is no evidence of a chronic destructive colitis, lymphocytic colitis, or collagenous colitis. (JPM:chelsie; 07/16/2021) . 02 Electronically signed: . Richard Armendariz MD, Pathologist NPI- [id number] . 01 Gross description: . Received in formalin labeled "Alexia Wayne, random colon BX" are multiple boland-brown soft tissue fragments measuring in aggregate 2.5 x 0.6 x 0.1 cm. The specimen is submitted entirely in A1. ([facility] [place]; 07/14/2021) [facility] 07/14/2021 1140 Local . 02 Pathologist provided ICD-10: R19.7, Z86.010 . 02 CPT . 380256 Specimen Comment: A courtesy copy of this report has been sent to [phone], [phone] Specimen Comment: [id number] Specimen Comment: Report sent to / DR COOL Performed at: 01 [facility] [address], [place], [place] [id number] MD Christopher Castillo MD Phone: [phone] Performed at: 02 [facility] [address], [place] [id number] MD Richard Armendariz MD Phone: [phone]
== END | disposition home or self-care (01) ==
LOC: ENDOS 07:25
PROVIDERS: ATTEND Internal Medicine Gastroenterology
DX: R19.7 Diarrhea, unspecified (principal); K64.0 First degree hemorrhoids; K63.89 Other specified diseases of intestine; I11.0 Hypertensive heart disease with heart failure; I50.9 Heart failure, unspecified; I48.91 Unspecified atrial fibrillation; E78.00 Pure hypercholesterolemia, unspecified; E03.9 Hypothyroidism, unspecified; F41.9 Anxiety disorder, unspecified; F32.9 Major depressive disorder, single episode, unspecified; Z86.73 Personal history of transient ischemic attack (TIA), and cerebral infarction without residual deficits; Z86.010 Personal history of colon polyps; Z79.899 Other long term (current) drug therapy; Z98.890 Other specified postprocedural states; Z88.2 Allergy status to sulfonamides
CPT/HCPCS: 45380; 88305; J2704